=== PATIENT | female | born 1965 | race Caucasian/White ===

== ENCOUNTER → 2019-04-19 | Outpatient (CLI) | payer MEDICARE, OTHER ==
[2019-04-19 13:30] LABS: HCT 45.3 % (34.0-46.0); HGB 15.7 gm/dL (11.4-16.0); MCH 32.2 pg (25.0-35.0); MCHC 34.5 g/dL (31.0-37.0); MCV 93.2 fL (80.0-100.0); Mean Platelet Volume 5.4; Platelet Count 313 k/uL (150-450); RBC 4.86 m/uL (3.80-5.40); RDW 13.6 % (11.5-15.5); WBC 9.3 k/uL (3.8-10.6)
[2019-04-19 13:37] LABS: African American GFR (CKD) >90 (>60 ml/min/1.73 sqM); Anion Gap 9 mmol/L; Blood Urea Nitrogen 23 mg/dL (7-17); Carbon Dioxide 29 mmol/L (22-30); Chloride 99 mmol/L (98-107); Non-African American GFR(CKD) 84 (>60 ml/min/1.73 sqM); Potassium 4.5 mmol/L (3.5-5.1); Sodium 137 mmol/L (137-145)
== END | disposition home or self-care (01) ==
LOC: LABPAT 12:27
PROVIDERS: ATTEND Internal Medicine Interventional Cardiology
DX: Z01.812 Encounter for preprocedural laboratory examination (principal); I65.23 Occlusion and stenosis of bilateral carotid arteries
CPT/HCPCS: 36415; 80051; 82565; 84520; 85027

== ENCOUNTER 2019-04-21 10:20 | Day surgery (SDC) | payer MEDICARE, OTHER ==
[2019-04-19 10:28] VITALS: BMI 37.4
[~2019-04-21 10:20] MED LIST: ALPRAZolam 0.25 MG TAB PO PRN; ALPRAZolam 0.5 MG TAB PO PRN; ASPIRIN 325 MG TAB PO STA; ATORVASTATIN 80 MG TAB PO STA; NITROGLYCERIN SL TABS 0.4 MG TAB SUBLINGUAL PRN; SODIUM CHLORIDE 0.9% 1,000 ML in EMPTY BAG 1 BAG IV ONE
[2019-04-21] MEDS ORDERED: ASPIRIN 81 MG ONE (10:32)
[2019-04-21] MEDS ORDERED: SODIUM CHLORIDE 0.9% 1,000 ML IV ONE (10:54)
[2019-04-21] MEDS ORDERED: INSULIN ASPART (NovoLOG) 100 UNIT/ML VIAL SQ ONE (10:56)
[2019-04-21 10:59] LABS: Glucose,Whole Blood 241 mg/dL (75-99)
[2019-04-21] MEDS ORDERED: fentaNYL (PF) 50 MCG/ML 2 ML AMP IVP ONE (15:30)
[2019-04-21] MEDS ORDERED: MIDAZOLAM 2 MG/2 ML VIAL IVP ONE (15:30)
[2019-04-21] MEDS ORDERED: LIDOCAINE 1% INJ 10MG/ML (20 ML MDV) SQ ONE (15:33)
[2019-04-21] MEDS ORDERED: SODIUM CHLORIDE 0.9% 1,000 ML IV SCH (16:15)
[2019-04-21] MEDS ORDERED: ATROPINE SULFATE 0.1 MG/ML 10ML SYRINGE ONE (16:15)
--- NOTE | 2019-04-21 16:20 | P.PCN ---
Date of Procedure: 04/21/19 Operative Findings: PERIPHERAL ANGIOGRAM Performing physician Jaxson Townsend M.D. Procedure performed 1. Selective left subclavian angiogram 2. Gradient measurement across the left subclavian artery Indication This is a pleasant 53-year-old female patient with history of coronary artery disease and prior coronary artery bypass grafting, dyslipidemia, hypertension, and history of smoking, was experiencing left arm discomfort and diminished left radial pulse. She underwent an arterial duplex study which revealed severe disease involving the left subclavian artery. Because of that she was brought today to undergo left subclavian angiogram with possible left subclavian stenting. Approach Right common femoral artery Complications None Level of sedation Moderate sedation length of 25 minutes Procedure description After obtaining an informed consent the patient was brought to the cardiac sleep lab technician. The right common femoral artery was cannulated using micropuncture technique, the micropuncture wire passed easily then I placed a 6-Emir[place] sheath at the right common femoral artery. Subsequently I did engage the left subclavian artery using a Kolby right catheter. After that I did selective left subclavian angiogram. Then I did gradient measurement across the left subclavian. The procedure was completed without any complications Left subclavian angiogram It was performed in the HARMON as well as HARMON projection and using digital subselection. In the [place] projection, there was mild disease involving the left subclavian right after the takeoff of the left vertebral artery. On the [place] projection, the there was intermediate disease involving the left subclavian. Because of that I did a gradient measurement across the left subclavian and that came in to be at only 10 mmHg which is below the significant. Because of that I decided to stop. Postprocedure management 1. Aggressive cholesterol control 2. Risk factors modification 3. Smoking cessation 4. Follow-up with the patient
--- NOTE | 2019-04-21 17:08 | IR ---
EXAMINATION TYPE: IR angio subclavian DATE OF EXAM: 04/21/2019 CLINICAL HISTORY: Left arm pain and numbness. TECHNIQUE: Fluoroscopy. COMPARISON: None. FINDINGS: Fluoroscopic guidance was provided during left upper extremity angiogram procedure perform ed by Dr. Townsend. A total of 4.5 minutes of fluoroscopic time was utilized during the procedure and se veral cine runs are acquired. Please refer to procedure note for further details as I was not present nor performed procedure. IMPRESSION: As Above.
[2019-04-21 20:07] VITALS: RESP 18
[2019-04-21] MEDS ORDERED: HYDROcodone/APAP 7.5-325MG 1 EACH TAB PO PRN (22:08)
[2019-04-21 22:16] LABS: Glucose,Whole Blood 286 mg/dL (75-99)
[2019-04-21] MEDS: INSULIN DETEMIR (LEVEMIR) 100 UNIT/ML SYR SQ SCH (22:56)
[2019-04-21] MEDS: INSULIN ASPART (NovoLOG) 100 UNIT/ML VIAL SQ SCH (23:17)
[2019-04-22 06:23] LABS: African American GFR (CKD) >90 (>60 ml/min/1.73 sqM); Non-African American GFR(CKD) >90 (>60 ml/min/1.73 sqM)
[2019-04-22] MEDS ORDERED: LEVOTHYROXINE 50 MCG TAB PO SCH (06:30)
[2019-04-22 06:49] LABS: Glucose,Whole Blood 190 mg/dL (75-99)
[2019-04-22] MEDS ORDERED: CARVEDILOL 3.125 MG TAB PO SCH (07:30)
[2019-04-22] MEDS ORDERED: PANTOPRAZOLE 40 MG TABLET PO SCH (07:30)
[2019-04-22 07:33] VITALS: BP 125/56; PULSE 70; TEMP 97.7
[2019-04-22] MEDS: INSULIN DETEMIR (LEVEMIR) 100 UNIT/ML SYR SQ SCH (08:16)
[2019-04-22] MEDS: INSULIN ASPART (NovoLOG) 100 UNIT/ML VIAL SQ SCH (08:16)
[2019-04-22] MEDS ORDERED: LISINOPRIL 10 MG TAB PO SCH (09:00)
[2019-04-22] MEDS ORDERED: ASPIRIN 81 MG PO SCH (09:00)
[2019-04-22] MEDS ORDERED: FUROSEMIDE 40 MG TAB PO SCH (09:00)
[2019-04-22] MEDS ORDERED: CLOPIDOGREL 75 MG TAB PO SCH (09:00)
[2019-04-22] MEDS ORDERED: SPIRONOLACTONE 25 MG TAB PO SCH (09:00)
[2019-04-22] MEDS ORDERED: CHOLECALCIFEROL 1,000 UNIT TAB PO SCH (09:00)
[2019-04-22] MEDS ORDERED: busPIRone HCl 5 MG TAB PO SCH (09:00)
[2019-04-22] MEDS ORDERED: FERROUS SULFATE 325 MG TAB PO SCH (09:00)
[2019-04-22] MEDS ORDERED: ATORVASTATIN 80 MG TAB PO SCH (09:00)
[2019-04-22] MEDS ORDERED: ISOSORBIDE MONONITRATE ER 30 MG TAB.ER.24H PO SCH (09:00)
[2019-04-22] MEDS ORDERED: Canagliflozin [Invokana] 100 MG PO SCH (09:00)
[2019-04-22] MEDS ORDERED: EVOLOCUMAB 140 MG SQ SCH (09:00)
[2019-04-22] MEDS ORDERED: FENOFIBRATE 160 MG TAB PO SCH (09:00)
[2019-04-22] MEDS ORDERED: DESVENLAFAXINE 100 MG PO SCH (09:00)
[2019-04-22] MEDS ORDERED: FAMOTIDINE 20 MG TAB PO SCH (21:00)
[2019-04-22] MEDS ORDERED: diphenhydrAMINE 50 MG CAP PO SCH (21:00)
--- NOTE | 2019-04-23 14:50 | DS ---
DISCHARGE SUMMARY ADMISSION DATE: 04/21/2019 DISCHARGE DATE: 04/22/2019 BRIEF HISTORY: This is a 53-year-old female patient with history of coronary artery disease and prior coronary artery bypass grafting, diabetes, hypertension, dyslipidemia, and peripheral arterial disease, was experiencing left arm discomfort with exertion. She is known to have left subclavian stenosis. She does have diminished left radial pulse. She underwent left subclavian angiogram which revealed only intermediate disease. I did perform gradient measurement across the left subclavian and that came into be not significant at 10 mmHg. Because of that, stenting of the left subclavian was aborted. The patient kept overnight because the procedure was performed late during the day. The patient is going to be discharged home on dual anti-platelet therapy and I will follow up with the patient in the office as an outpatient. ANNIKA / SYED: [id number] /
== END 2019-04-22 10:30 | disposition home or self-care (01) ==
LOC: CATHCVL 10:20 → 1SOBS 16:47 → CATHCVL 04-22 10:30
PROVIDERS: ATTEND Internal Medicine Interventional Cardiology
DX: I70.8 Atherosclerosis of other arteries (principal); I25.10 Atherosclerotic heart disease of native coronary artery without angina pectoris; I65.23 Occlusion and stenosis of bilateral carotid arteries; E78.5 Hyperlipidemia, unspecified; F17.210 Nicotine dependence, cigarettes, uncomplicated; E11.51 Type 2 diabetes mellitus with diabetic peripheral angiopathy without gangrene; Z95.1 Presence of aortocoronary bypass graft; Z82.49 Family history of ischemic heart disease and other diseases of the circulatory system; Z95.5 Presence of coronary angioplasty implant and graft; Z79.02 Long term (current) use of antithrombotics/antiplatelets; Z79.82 Long term (current) use of aspirin; Z79.890 Hormone replacement therapy; Z79.4 Long term (current) use of insulin; Z79.899 Other long term (current) drug therapy
CPT/HCPCS: 36215; 75710; 82565; C1894; C1769 ×4; J2250; J2001; J3010

== ENCOUNTER 2021-08-30 08:42 | Day surgery (SDC) | payer MEDICARE, OTHER ==
[2021-08-28 15:47] VITALS: BMI 40.1
[~2021-08-30 08:42] MED LIST changes: +ASPIRIN 325 MG TAB PO ONE; -ASPIRIN 325 MG TAB PO STA; +ATORVASTATIN 80 MG TAB PO ONE; -ATORVASTATIN 80 MG TAB PO STA; -NITROGLYCERIN SL TABS 0.4 MG TAB SUBLINGUAL PRN; -SODIUM CHLORIDE 0.9% 1,000 ML in EMPTY BAG 1 BAG IV ONE
[2021-08-30] MEDS: SODIUM CHLORIDE 0.9% 1,000 ML in EMPTY BAG 1 BAG IV SCH ×3 (09:05→22:32)
[2021-08-30 09:11] LABS: Glucose,Whole Blood 231 mg/dL (75-99)
[2021-08-30] MEDS ORDERED: INSULIN ASPART (NovoLOG) 100 UNIT/ML VIAL SQ ONE (09:19)
[2021-08-30] MEDS ORDERED: MIDAZOLAM 2 MG/2 ML VIAL IV ONE ×2 (09:40→10:52)
[2021-08-30] MEDS ORDERED: LIDOCAINE 1% INJ 10MG/ML (20 ML MDV) SQ ONE ×2 (09:42)
[2021-08-30] MEDS: HEPARIN SODIUM 1,000 UN/ML (10ML VL) IV ONE ×2 (10:06→10:40)
[2021-08-30] MEDS ORDERED: IOPAMIDOL-370 125ML BTL INJ ONE (10:13)
[2021-08-30] MEDS ORDERED: IOPAMIDOL-370 100ML BTL INJ ONE ×2 (10:53)
[2021-08-30] MEDS ORDERED: HYDROcodone/APAP 7.5-325MG 1 EACH TAB PO PRN (11:06)
[2021-08-30] MEDS ORDERED: MAG HYDROX/AL HYDROX/SIMETH 30 ML CUP PO PRN (11:08)
[2021-08-30] MEDS ORDERED: NITROGLYCERIN SL TABS 0.4 MG TAB SUBLINGUAL PRN (11:08)
[2021-08-30] MEDS ORDERED: RX INFO: IV CONTRAST WAS GIVEN 1 EACH MISC MISCELLANE PRN (11:08)
[2021-08-30] MEDS ORDERED: ZOLPIDEM 5 MG TAB PO PRN (11:08)
[2021-08-30] MEDS ORDERED: ATROPINE SULFATE 0.1 MG/ML 10ML SYRINGE IV PRN (11:08)
[2021-08-30] MEDS ORDERED: CLOPIDOGREL 75 MG TAB PO ONE (11:09)
[2021-08-30] MEDS ORDERED: EVOLOCUMAB 140 MG/ML SQ SCH (11:15)
[2021-08-30] MEDS ORDERED: SODIUM CHLORIDE 0.9% 1,000 ML in EMPTY BAG 1 BAG IV SCH (11:15)
--- NOTE | 2021-08-30 11:26 | P.PCN ---
Date of Procedure: 08/30/21 Operative Findings: CARDIAC CATHETERIZATION AND PERCUTANEOUS CORONARY INTERVENTION PERFORMING PHYSICIAN: Jaxson Townsend MD, [facility] PROCEDURE PERFORMED: 1. Selective right and left coronary angiogram 2. Left heart catheterization 3. Selective angiogram of the jump SVG to LAD and OM 4. Selective angiogram of the SVG to PDA of LCx 5. Successful stenting of the SVG to PDA of LCx using 3.5 x 38 and 3.5 x 32 mm Xience CHAVO with an excellent angiographic results 6. Selective right common femoral artery angiogram 7. Ultrasound-guided access of the right common femoral artery INDICATION: This is a very pleasant 56-year-old female patient with diabetes and smoking and hypertension and dyslipidemia and peripheral arterial disease was seen in the office recently where she was experiencing symptoms of shortness of breath with exertion which has progressed on her recently. She underwent myocardial perfusion imaging stress test and that showed basal lateral ischemia. In the light of that a heart catheterization was advised COMPLICATION: None APPROACH: Right common femoral artery LEVEL OF SEDATION: Moderate with a sedation length of 73 minutes PROCEDURE DESCRIPTION: After obtaining an informed consent, the patient was brought to cardiac lab technician. Local anesthesia was performed using lidocaine subcutaneously. The right common femoral artery was cannulated using Seldinger technique, the guidewire passed easily, following that we advanced a 6 [place] sheath dilator assembly, the wire and dilator were removed and sheath was flushed. Selective right and left coronary angiogram using a 6-[place] JR4 and JL catheters. Subsequently I did an angiogram of the SVG to LAD and LCx using LCB catheter Following that we did left heart catheterization using 6-[place] pigtail catheter. After that I did intervene on the SVG going to PDA/60 The procedure was completed there was no complication. SELECTIVE CORONARY ANGIOGRAM: The right coronary artery: Is a large caliber vessel and a dominant vessel. The RCA approximately appears to be angiographically normal. The mid RCA is a stented with mild in-stent restenosis. The RCA distally appeared to be angiographically normal and bifurcates into PDA and PLV branches and both appeared to be angiographically normal. Left main: Has mild disease only. It bifurcates into an LCx and LAD The left circumflex: The LCx is a large caliber vessel and codominant vessel. The proximal LCx appeared to be angiographically normal. Gives rises into the first and second obtuse marginal branches and both appeared to be angiographically normal. The LCx in the distally is occluded by the bifurcation of small third obtuse marginal branch. The left anterior descending artery: The LAD is a large caliber vessel. The proximal LAD has mild disease only. The mid LAD has a lesion appeared to be tubular in the range of 40-50%. The LAD distally is angiographically normal. There is competitive flow was seen in the LAD coming from the graft. CORONARY BYPASSES ANGIOGRAM: The jump SVG going to LAD and OM appears to be patent The SVG going to the PDA of LCx is subtotally occluded PCI OF SVG TO THE PDA OF LCX: Anticoagulation was initiated and continued using heparin with continuous ACT monitoring. I engaged the graft using an a.l. 0.75 guiding catheter. Attempting wiring the graft using a whisper wire was unsuccessful but was successful with a backup support off super cross catheter at 120 angle. Subsequently the catheter was advanced all the way to the distal graft and I did inject through the catheter to prove that I was in the true lumen. After that balloon angioplasty was performed using 2.5 x 20 mm balloon. Subsequently I deployed in the mid graft 3.5 x 38 mm stent and in the proximal graft I did deploy 3.5 x 32 mm stent. Balloon angioplasty of the PDA itself was performed using 2.5 mm balloon The final angiogram showed an excellent angiographic results and the procedure was completed without any complication HEMODYNAMICS: The LVEDP was 4 mmHg without significant gradient across aortic valve CONCLUSION: 1. Patent jump SVG going to the LAD and OM 2. Occluded SVG to the PDA off LCx 3. Mild in-stent restenosis involving the mid right coronary artery 4. I performed successful stenting of the SVG to PDA of LCx with good angiographic results POSTPROCEDURE MANAGEMENT: Dual antiplatelet therapy Aggressive cholesterol control Risk factors modifications Follow-up with the
[2021-08-30] MEDS ORDERED: INSULIN REGULAR U SQ SCH (12:30)
[2021-08-30] MEDS ORDERED: NICOTINE 14MG/24HR PATCH TRANSDERM SCH (13:30)
[2021-08-30] MEDS ORDERED: INSULIN REGULAR 100 UNIT/ML VIAL (IM/SQ) SQ SCH ×3 (13:51→21:00)
[2021-08-30] MEDS: GABAPENTIN 300 MG CAP PO SCH ×2 (15:38→21:46)
[2021-08-30 16:54] LABS: Glucose,Whole Blood 240 mg/dL (75-99)
[2021-08-30] MEDS ORDERED: INSULIN REGULAR 100 UNIT/ML VIAL (IV) SQ SCH ×2 (17:30→21:00)
[2021-08-30] MEDS: PANTOPRAZOLE 40 MG TABLET PO SCH (17:40)
[2021-08-30 19:46] LABS: Glucose,Whole Blood 225 mg/dL (75-99)
[2021-08-30] MEDS: busPIRone HCl 10 MG TAB PO SCH (20:30)
[2021-08-30] MEDS: FUROSEMIDE 40 MG TAB PO SCH (20:32)
[2021-08-30] MEDS ORDERED: diphenhydrAMINE 25 MG CAP PO SCH (21:00)
[2021-08-30] MEDS ORDERED: ARIPiprazole 10 MG TAB PO SCH (21:00)
[2021-08-30] MEDS ORDERED: Icosapent Ethyl [Vascepa] 0.5 GM Capsule PO SCH (21:00)
[2021-08-31] MEDS ORDERED: LEVOTHYROXINE 137 MCG TAB PO SCH (06:30)
[2021-08-31] MEDS ORDERED: carvediloL 6.25 MG TAB PO SCH (07:30)
[2021-08-31] MEDS ORDERED: INSULIN REGULAR 100 UNIT/ML VIAL (IV) SQ SCH ×2 (07:30→12:30)
[2021-08-31 07:38] VITALS: BP 152/73; PULSE 78; RESP 18; TEMP 97.5
[2021-08-31 08:10] LABS: African American GFR (CKD) >90 (>60 ml/min/1.73 sqM); Non-African American GFR(CKD) >90 (>60 ml/min/1.73 sqM)
--- NOTE | 2021-08-31 08:27 | P.DS ---
Providers Attending physician: Jaxson Townsend Consults: 08/30/21 11:08 Consult Physician Routine Consulting Provider: [facility] Consult Reason/Comments: Post Interventional patient Do you want consulting provider notified?: Already Contacted [facility] Course: The patient is a pleasant 56-year-old female patient was underwent heart catheterization and stenting of the SVG to LCx yesterday The patient was seen this morning. She is hemodynamically stable and asymptomatic. She's going to be discharged home on dual antiplatelet therapy and I'll follow- up with the patient next week in the office Plan - Discharge Summary Discharge Rx Participant: No New Discharge Prescriptions: Continue Spironolactone [Aldactone] 25 mg PO DAILY ARIPiprazole [Abilify] 30 mg PO HS carvediloL [Carvedilol] 6.25 mg PO DAILY Clopidogrel Bisulfate [Clopidogrel] 75 mg PO QAM Hydrocodone/Acetaminophen [Hydrocodon-Acetaminoph 7.5-325] 1 tab PO Q6H PRN PRN Reason: Pain lisinopriL [Lisinopril] 10 mg PO DAILY Aspirin 162 mg PO DAILY diphenhydrAMINE [Benadryl] 50 mg PO HS Levothyroxine Sodium [Synthroid] 137 mcg PO DAILY Ferrous Sulfate [Iron (65 MG Elemental)] 65 mg PO DAILY #0 Rosuvastatin Calcium [Crestor] 40 mg PO DAILY Cholecalciferol (Vitamin D3) [Vitamin D3] 5,000 units PO DAILY busPIRone HCL 30 mg PO BID Isosorbide Mononitrate ER [Imdur] 30 mg PO DAILY Furosemide [Lasix] 40 mg PO BID Canagliflozin [Invokana] 100 mg PO DAILY Evolocumab [Repatha Sureclick] 140 mg SQ Q14D Fenofibrate [Lofibra] 160 mg PO DAILY Pantoprazole [Protonix] 40 mg PO BID Gabapentin [Neurontin] 300 mg PO TID Insulin Regular, Human [humulin R U-500 Kwikpen] 150 unit SQ W/BRKFST Insulin Regular, Human [humulin R U-500 Kwikpen] 80 unit SQ W/LUNCH Insulin Regular, Human [humulin R U-500 Kwikpen] 105 unit SQ W/SUPPER Insulin Regular, Human [humulin R U-500 Kwikpen] 40 unit SQ HS Icosapent Ethyl [Vascepa] 1,000 gm PO BID Discharge Medication List ARIPiprazole [Abilify] 30 mg PO HS 04/25/14 [History] Aspirin 162 mg PO DAILY 04/25/14 [History] Clopidogrel Bisulfate [Clopidogrel] 75 mg PO QAM 04/25/14 [History] Ferrous Sulfate [Iron (65 MG Elemental)] 65 mg PO DAILY #0 04/25/14 [History] Hydrocodone/Acetaminophen [Hydrocodon-Acetaminoph 7.5-325] 1 tab PO Q6H PRN 04/25/14 [History] Levothyroxine Sodium [Synthroid] 137 mcg PO DAILY 04/25/14 [History] Spironolactone [Aldactone] 25 mg PO DAILY 04/25/14 [History] carvediloL [Carvedilol] 6.25 mg PO DAILY 04/25/14 [History] diphenhydrAMINE [Benadryl] 50 mg PO HS 04/25/14 [History] lisinopriL [Lisinopril] 10 mg PO DAILY 04/25/14 [History] Rosuvastatin Calcium [Crestor] 40 mg PO DAILY 01/11/15 [History] Cholecalciferol (Vitamin D3) [Vitamin D3] 5,000 units PO DAILY 08/21/15 [History] Canagliflozin [Invokana] 100 mg PO DAILY 04/19/19 [History] Evolocumab [Repatha Sureclick] 140 mg SQ Q14D 04/19/19 [History] Furosemide [Lasix] 40 mg PO BID 04/19/19 [History] Isosorbide Mononitrate ER [Imdur] 30 mg PO DAILY 04/19/19 [History] busPIRone HCL 30 mg PO BID 04/19/19 [History] Fenofibrate [Lofibra] 160 mg PO DAILY 08/14/21 [History] Gabapentin [Neurontin] 300 mg PO TID 08/14/21 [History] Icosapent Ethyl [Vascepa] 1,000 gm PO BID 08/14/21 [History] Insulin Regular, Human [humulin R U-500 Kwikpen] 40 unit SQ HS 08/14/21 [History] Insulin Regular, Human [humulin R U-500 Kwikpen] 80 unit SQ W/LUNCH 08/14/21 [History] Insulin Regular, Human [humulin R U-500 Kwikpen] 105 unit SQ W/SUPPER 08/14/21 [History] Insulin Regular, Human [humulin R U-500 Kwikpen] 150 unit SQ W/BRKFST 08/14/21 [History] Pantoprazole [Protonix] 40 mg PO BID 08/14/21 [History] Follow up Appointment(s)/Referral(s): Jaxson Townsend MD [STAFF PHYSICIAN] - 09/06/21 1:15 pm ([facility] office.)
[2021-08-31] MEDS ORDERED: ATORVASTATIN 80 MG TAB PO SCH (09:00)
[2021-08-31] MEDS ORDERED: FERROUS SULFATE 325 MG TAB PO SCH (09:00)
[2021-08-31] MEDS ORDERED: lisinopriL 10 MG TAB PO SCH (09:00)
[2021-08-31] MEDS ORDERED: FENOFIBRATE 160 MG TAB PO SCH (09:00)
[2021-08-31] MEDS ORDERED: CLOPIDOGREL 75 MG TAB PO SCH (09:00)
[2021-08-31] MEDS ORDERED: ASPIRIN 81 MG PO SCH (09:00)
[2021-08-31] MEDS ORDERED: SPIRONOLACTONE 25 MG TAB PO SCH (09:00)
[2021-08-31] MEDS ORDERED: CHOLECALCIFEROL 25 MCG (1000 IU) TABLET PO SCH (09:00)
[2021-08-31] MEDS ORDERED: ISOSORBIDE MONONITRATE ER 30 MG TAB.ER.24H PO SCH (09:00)
[2021-08-31] MEDS: FUROSEMIDE 40 MG TAB PO SCH (09:06)
[2021-08-31] MEDS: GABAPENTIN 300 MG CAP PO SCH (09:06)
[2021-08-31] MEDS: PANTOPRAZOLE 40 MG TABLET PO SCH (09:06)
[2021-08-31] MEDS: busPIRone HCl 10 MG TAB PO SCH (09:07)
== END 2021-08-31 10:05 | disposition home or self-care (01) ==
LOC: CATHCVL 08:42 → 6NMEDSUR 13:32 → CATHCVL 08-31 10:05
PROVIDERS: ATTEND Internal Medicine Interventional Cardiology
DX: I25.810 Atherosclerosis of coronary artery bypass graft(s) without angina pectoris (principal); I25.10 Atherosclerotic heart disease of native coronary artery without angina pectoris; T82.855A Stenosis of coronary artery stent, initial encounter; I10 Essential (primary) hypertension; E11.51 Type 2 diabetes mellitus with diabetic peripheral angiopathy without gangrene; E78.5 Hyperlipidemia, unspecified; F17.210 Nicotine dependence, cigarettes, uncomplicated; I70.8 Atherosclerosis of other arteries; I77.89 Other specified disorders of arteries and arterioles; Z95.1 Presence of aortocoronary bypass graft; Z20.822 Contact with and (suspected) exposure to COVID-19; Z79.899 Other long term (current) drug therapy; Z79.890 Hormone replacement therapy; Z79.02 Long term (current) use of antithrombotics/antiplatelets; Z79.4 Long term (current) use of insulin; Z82.49 Family history of ischemic heart disease and other diseases of the circulatory system
CPT/HCPCS: 93459; 82565; 87635; C9604; C1769 ×5; C1887 ×2; C1725 ×3; C1894; C1874 ×2; J2250; J2001; J1644; Q9967 ×2

== ENCOUNTER → 2021-11-07 | Outpatient (CLI) | payer MEDICARE, OTHER ==
[2021-11-07 07:43] LABS: African American GFR (CKD) >90 (>60 ml/min/1.73 sqM); Blood Urea Nitrogen 18 mg/dL (7-17); Non-African American GFR(CKD) >90 (>60 ml/min/1.73 sqM)
--- NOTE | 2021-11-07 09:19 | CT ---
EXAMINATION TYPE: CT soft tissue neck w con DATE OF EXAM: 11/07/2021 8:00 AM COMPARISON: No previous CT scan is available for comparison HISTORY: Rt neck swelling, mass, lump CT DLP: 592.1 mGycm Automated exposure control for dose reduction was used. CONTRAST: CT scan of the neck is performed following with IV Contrast, patient injected with 100 mL of Isovue 3 00. Axial images are obtained, coronal and sagittal reformatted images are reviewed. FINDINGS: Grossly unremarkable nasopharynx, oropharynx, hypopharynx, larynx, visualized portion of the trachea and esophagus. Small heterogeneous thyroid gland, please correlate with thyroid function tests. Symme trical unremarkable parotid and submandibular salivary glands. Scattered subcentimeter bilateral cervical and submandibular lymph nodes. No pathologically enlarged lymph nodes in the neck. Scattered arterial atherosclerotic calcifications. Patent major neck vessels . Questionable small lipoma versus prominent fat seen in the right side of the lower neck measuring 2 3 mm (image #40, series 3) Mucosal thickening of the right maxillary sinus. Sternotomy wire sutures. Minimal infiltration in the posterior aspect of the right lung apex, not appreciated in 2015 CT chest. Recommend clinical correl ation and precautionary follow-up chest CT scan in 2-3 months for reassessment. IMPRESSION: Questionable small lipoma versus prominent fat seen in the right side of the lower neck as described above, please correlate clinically. Otherwise no definite lesion or pathologically enlarged lymph nodes seen in the neck. Incidental find ings and recommendations as detailed above.
== END | disposition home or self-care (01) ==
LOC: RADCTMAIN 06:54
PROVIDERS: ATTEND Otolaryngology
DX: R22.1 Localized swelling, mass and lump, neck (principal)
CPT/HCPCS: 82565; 84520; 70491; 36415; Q9967

== ENCOUNTER 2021-12-15 14:25 | Emergency (ER) | payer MEDICARE, OTHER ==
[2021-12-15 14:32] VITALS: TEMP 98.1
[2021-12-15 15:28] LABS: Basophils # (A) 0.1 k/uL (0-0.2); Basophils % (A) 1 %; Eosinophils # (A) 0.3 k/uL (0-0.7); Eosinophils % (A) 4 %; HCT 41.9 % (34.0-46.0); HGB 13.7 gm/dL (11.4-16.0); Lymphocytes # (A) 1.6 k/uL (1.0-4.8); Lymphocytes % (A) 22 %; MCH 30.8 pg (25.0-35.0); MCHC 32.7 g/dL (31.0-37.0); MCV 94.3 fL (80.0-100.0); Monocytes # (A) 0.4 k/uL (0-1.0); Monocytes % (A) 6 %; Neutrophils # (A) 4.7 k/uL (1.3-7.7); Neutrophils % (A) 67 %; Platelet Count 291 k/uL (150-450); RBC 4.44 m/uL (3.80-5.40); RDW 14.7 % (11.5-15.5); WBC 7.1 k/uL (3.8-10.6)
[2021-12-15 15:37] LABS: ALT 27 U/L (4-34); AST 32 U/L (14-36); African American GFR (CKD) >90 (>60 ml/min/1.73 sqM); Albumin 4.2 g/dL (3.5-5.0); Alkaline Phosphatase 45 U/L (38-126); Anion Gap 9 mmol/L; Blood Urea Nitrogen 20 mg/dL (7-17); Calcium 9.7 mg/dL (8.4-10.2); Carbon Dioxide 28 mmol/L (22-30); Chloride 102 mmol/L (98-107); Glucose 206 mg/dL (74-99); Non-African American GFR(CKD) 78 (>60 ml/min/1.73 sqM); Potassium 4.2 mmol/L (3.5-5.1); Sodium 139 mmol/L (137-145); Total Bilirubin 0.5 mg/dL (0.2-1.3)
--- NOTE | 2021-12-15 15:51 | XR ---
EXAMINATION TYPE: XR chest 2V DATE OF EXAM: 12/15/2021 COMPARISON: 01/11/2015 HISTORY: Short of breath TECHNIQUE: FINDINGS: There is no heart failure nor confluent pneumonic infiltrate. There are sternal wires. Costophrenic a ngles are clear. IMPRESSION: No active cardiopulmonary disease. No change.
[2021-12-15 15:54] LABS: Prothrombin Time 10.5 sec (9.0-12.0)
[2021-12-15 15:59] LABS: Partial Thromboplastin Time 21.6 sec (22.0-30.0)
[2021-12-15] MEDS ORDERED: ALBUTEROL NEBULIZED 2.5 MG/3 ML INHALATION STA (16:15)
--- NOTE | 2021-12-15 16:17 | ED ---
SOB HPI - General Chief Complaint: Shortness of Breath Stated Complaint: SOB/Sent by Urgent Care Time Seen by Provider: 12/15/21 14:42 Source: patient, RN notes reviewed Mode of arrival: ambulatory Limitations: no limitations - History of Present Illness Initial Comments: Patient is a 56-year-old female presents the emergency room with complaints of progressively shortness of breath with exertion. She reports that over the last month she has had shortness of breath with exertion but reports that these symptoms have slowly progressed and now she is having difficulty even getting dressed without having shortness of breath. She was recently following with ENT in regards to swelling in her throat which workup found her to have lipoma with no concerning with no adenopathy. Incidental finding on computed tomography scan did show a posterior right apex infiltrate. Due to this finding along with her smoking status she was referred to pulmonary by ENT. She has an appointment scheduled with a pulmonary on Friday. He reports despite her shor tness of breath she continues to smoke approximately a pack per day. She does not have a nebulizer at home and is not on home oxygen or home inhalers. She denies any associated symptoms with the exception of a cough. She denies any chest pain, orthopnea, peripheral edema, abdominal pain, nausea, vomiting, fevers or chills. She denies any known exposure to cover for influenza. She has a significant past medical history including GA 2 with previous CABG, diabetes on insulin and oral medications, anxiety and depression, CHF, eczema, anemia, CAD, hypothyroidism, hypertension and hyperlipidemia. - Related Data Home Medications Medication Instructions Recorded Confirmed ARIPiprazole [Abilify] 30 mg PO HS 04/25/14 08/30/21 Aspirin 162 mg PO DAILY 04/25/14 08/30/21 Clopidogrel Bisulfate [Clopidogrel] 75 mg PO QAM 04/25/14 08/30/21 Ferrous Sulfate [Iron (65 MG 65 mg PO DAILY #0 04/25/14 08/30/21 Elemental)] Hydrocodone/Acetaminophen 1 tab PO Q6H PRN 04/25/14 08/30/21 [Hydrocodon-Acetaminoph 7.5-325] Levothyroxine Sodium [Synthroid] 137 mcg PO DAILY 04/25/14 08/30/21 Spironolactone [Aldactone] 25 mg PO DAILY 04/25/14 08/30/21 carvediloL [Carvedilol] 6.25 mg PO DAILY 04/25/14 08/30/21 diphenhydrAMINE [Benadryl] 50 mg PO HS 04/25/14 08/30/21 lisinopriL [Lisinopril] 10 mg PO DAILY 04/25/14 08/30/21 Rosuvastatin Calcium [Crestor] 40 mg PO DAILY 01/11/15 08/30/21 Cholecalciferol (Vitamin D3) 5,000 units PO DAILY 08/21/15 08/30/21 [Vitamin D3] Canagliflozin [Invokana] 100 mg PO DAILY 04/19/19 08/30/21 Evolocumab [Repatha Sureclick] 140 mg SQ Q14D 04/19/19 08/28/21 Furosemide [Lasix] 40 mg PO BID 04/19/19 08/30/21 Isosorbide Mononitrate ER [Imdur] 30 mg PO DAILY 04/19/19 08/30/21 busPIRone HCL 30 mg PO BID 04/19/19 08/30/21 Fenofibrate [Lofibra] 160 mg PO DAILY 08/14/21 08/30/21 Gabapentin [Neurontin] 300 mg PO TID 08/14/21 08/30/21 Insulin Regular, Human [humulin R 40 unit SQ HS 08/14/21 08/30/21 U-500 Kwikpen] Insulin Regular, Human [humulin R 80 unit SQ W/LUNCH 08/14/21 08/30/21 U-500 Kwikpen] Insulin Regular, Human [humulin R 105 unit SQ W/SUPPER 08/14/21 08/30/21 U-500 Kwikpen] Insulin Regular, Human [humulin R 150 unit SQ W/BRKFST 08/14/21 08/30/21 U-500 Kwikpen] Pantoprazole [Protonix] 40 mg PO BID 08/14/21 08/30/21 icosapent ethyL [Vascepa] 1,000 gm PO BID 08/14/21 08/30/21 Previous Rx's Medication Instructions Recorded Albuterol Inhaler [Ventolin Hfa 1 - 2 puff INHALATION RT-Q6H PRN 12/15/21 Inhaler] 30 Days #1 inh methylPREDNISolone Dose Pack 4 mg PO DIRECTED #21 tab 12/15/21 [Medrol Dose Pack] Allergies Allergy/AdvReac Type Severity Reaction Status Date / Time No Known Allergies Allergy Verified 12/15/21 14:31 Review of Systems ROS Statement: Those systems with pertinent positive or pertinent negative responses have been documented in the HPI. ROS Other: All systems not noted in ROS Statement are negative. Past Medical History Past Medical History: Blood Disorder, Coronary Artery Disease (CAD), Chest Pain / Angina, Heart Failure, Diabetes Mellitus, GERD/Reflux, Hyperlipidemia, Hypertension, Myocardial Infarction (non Q-wave), Pneumonia, Skin Disorder (Eczema), Thyroid Disorder Additional Past Medical History / Comment(s): Overactive bladder and anemia Last Myocardial Infarction Date:: 2002 History of Any Multi-Drug Resistant Organisms: None Reported Past Surgical History: Section, Coronary Bypass/CABG, Heart Catheterization With Stent Additional Past Surgical History / Comment(s): QUAD BYPASS 2012. REMOVAL OVARIAN CYST, COLONOSCOPY Past Anesthesia/Blood Transfusion Reactions: No Reported Reaction Date of Last Stent Placement:: 08/30/21 Past Psychological History: Anxiety, Bipolar, Depression, PTSD Smoking Status: Current every day smoker Past Alcohol Use History: Occasional Past Drug Use History: Marijuana - Past Family History Sister(s) Family Medical History: Cancer Additional Family Medical History / Comment(s): Uterine & Kidney. General Exam Limitations: no limitations General appearance: alert, in no apparent distress Head exam: Present: atraumatic, normocephalic, normal inspection Eye exam: Present: normal appearance, PERRL, EOMI. Absent: scleral icterus, conjunctival injection, periorbital swelling ENT exam: Present: normal exam, mucous membranes moist Neck exam: Present: normal inspection, tenderness, full ROM, lymphadenopathy Respiratory exam: Present: wheezes (fin right anterior expiratory), decreased breath sounds. Absent: respiratory distress, rales, rhonchi, stridor, accessory muscle use Cardiovascular Exam: Present: regular rate, normal rhythm, normal heart sounds, systolic murmur (III/). Absent: diastolic murmur, rubs, gallop, clicks GI/Abdominal exam: Present: soft, normal bowel sounds. Absent: distended, tenderness, guarding, rebound, rigid Extremities exam: Present: normal inspection. Absent: pedal edema, joint swelling Back exam: Present: normal inspection Neurological exam: Present: alert, oriented X3, CN II-XII intact Psychiatric exam: Present: normal affect, normal mood Skin exam: Present: warm, dry, intact, normal color. Absent: rash Course Vital Signs 12/15/21 12/15/21 12/15/21 14:30 16:47 17:14 Temperature 98.1 F Pulse Rate 87 69 66 Respiratory 20 18 Rate Blood Pressure 153/67 141/71 O2 Sat by Pulse 96 95 Oximetry 12/15/21 17:23 Temperature Pulse Rate 58 L Respiratory Rate Blood Pressure O2 Sat by Pulse Oximetry Medical Decision Making - Medical Decision Making Patient is a 56-year-old female who presents with Dyspnea with exertion none at rest with known smoker and CAD history. Due to lack of associated symptoms low probability for CHF or pneumonia; higher probability for COPD exacerbation. Will check EKG, CMP, CBC, lactic acid, and troponin along with chest x-ray. Will give a dose of albuterol nebulized along while awaiting results. No need for supplemental oxygen. Saturating well on room air. Labs show elevated lactic acid at 2.1 however likely secondary to diabetes with elevated glucose at 220. No leukocytosis or hypoxia noted. Troponin negative. EKG without any acute changes. Awaiting chest x-ray results. Will give a dose of IV steroids as presentation more consistent with COPD exacerbation. Chest x-ray without acute cardiopulmonary process. Due to previous computed tomography scan recommend a follow-up will repeat computed tomography scan at this time without contrast. Pending results will plan for discharge home on oral steroids with follow-up as scheduled with pulmonary and her primary care provider. Computed tomography scan of the chest negative. There is probably hepatomegaly. No suspicious pulmonary masses. There is clearing of the minimal atelectasis interstitial density in the lung bases compared to old exam. No suspicious mass. Lungs have no infiltrate. Will proceed with discharge for follow-up with her primary care provider and pulmonary. Will provide prescription for Medrol Dosepak and albuterol inhaler to utilize as needed. Sensation encouraged. Case discussed with Dr. Valdovinos. - Lab Data Result diagrams: 12/15/21 15:14 12/15/21 15:14 Lab Results 12/15/21 12/15/21 12/15/21 Range/Units 15:14 15:14 15:14 WBC 7.1 (3.8-10.6) k/uL RBC 4.44 (3.80-5.40) m/uL Hgb 13.7 (11.4-16.0) gm/dL Hct 41.9 (34.0-46.0) % MCV 94.3 (80.0-100.0) fL MCH 30.8 (25.0-35.0) pg MCHC 32.7 (31.0-37.0) g/dL RDW 14.7 (11.5-15.5) % Plt Count 291 (150-450) k/uL MPV 7.0 Neutrophils % 67 % Lymphocytes % 22 % Monocytes % 6 % Eosinophils % 4 % Basophils % 1 % Neutrophils # 4.7 (1.3-7.7) k/uL Lymphocytes # 1.6 (1.0-4.8) k/uL Monocytes # 0.4 (0-1.0) k/uL Eosinophils # 0.3 (0-0.7) k/uL Basophils # 0.1 (0-0.2) k/uL PT 10.5 (9.0-12.0) sec INR 1.0 (<1.2) APTT 21.6 L (22.0-30.0) sec Sodium 139 (137-145) mmol/L Potassium 4.2 (3.5-5.1) mmol/L Chloride 102 (98-107) mmol/L Carbon Dioxide 28 (22-30) mmol/L Anion Gap 9 mmol/L BUN 20 H (7-17) mg/dL Creatinine 0.84 (0.52-1.04) mg/dL Est GFR (CKD-EPI)AfAm >90 (>60 ml/min/1.73 sqM) Est GFR (CKD-EPI)NonAf 78 (>60 ml/min/1.73 sqM) Glucose 206 H (74-99) mg/dL Lactic Ac Sepsis Rflx Plasma Lactic Acid Edison (0.7-2.0) mmol/L Calcium 9.7 (8.4-10.2) mg/dL Total Bilirubin 0.5 (0.2-1.3) mg/dL AST 32 (14-36) U/L ALT 27 (4-34) U/L Alkaline Phosphatase 45 (38-126) U/L Troponin I (0.000-0.034) ng/mL Total Protein 7.0 (6.3-8.2) g/dL Albumin 4.2 (3.5-5.0) g/dL 12/15/21 12/15/21 12/15/21 Range/Units 15:14 15:14 15:42 WBC (3.8-10.6) k/uL RBC (3.80-5.40) m/uL Hgb (11.4-16.0) gm/dL Hct (34.0-46.0) % MCV (80.0-100.0) fL MCH (25.0-35.0) pg MCHC (31.0-37.0) g/dL RDW (11.5-15.5) % Plt Count (150-450) k/uL MPV Neutrophils % % Lymphocytes % % Monocytes % % Eosinophils % % Basophils % % Neutrophils # (1.3-7.7) k/uL Lymphocytes # (1.0-4.8) k/uL Monocytes # (0-1.0) k/uL Eosinophils # (0-0.7) k/uL Basophils # (0-0.2) k/uL PT (9.0-12.0) sec INR (<1.2) APTT (22.0-30.0) sec Sodium (137-145) mmol/L Potassium (3.5-5.1) mmol/L Chloride (98-107) mmol/L Carbon Dioxide (22-30) mmol/L Anion Gap mmol/L BUN (7-17) mg/dL Creatinine (0.52-1.04) mg/dL Est GFR (CKD-EPI)AfAm (>60 ml/min/1.73 sqM) Est GFR (CKD-EPI)NonAf (>60 ml/min/1.73 sqM) Glucose (74-99) mg/dL Lactic Ac Sepsis Rflx Y Plasma Lactic Acid Edison 2.2 H* (0.7-2.0) mmol/L Calcium (8.4-10.2) mg/dL Total Bilirubin (0.2-1.3) mg/dL AST (14-36) U/L ALT (4-34) U/L Alkaline Phosphatase (38-126) U/L Troponin I <0.012 (0.000-0.034) ng/mL Total Protein (6.3-8.2) g/dL Albumin (3.5-5.0) g/dL - EKG Data EKG Comments: EKG shows sinus rhythm with old anterior myocardial infarct and old Inferior myocardial infarct. No acute changes. Ventricular rate 76 bpm, VT interval 140 ms, QRS duration 100 ms, QT/QTC 410/4 and 40 ms, PRT axes 68, 40, 108 - Radiology Data Radiology results: report reviewed, image reviewed CT of the chest without contrast shows the lungs are clear of infiltrate. Heart size is normal. No pericardial effusion. No pleural effusion. No suspicious pulmonary masses. There is clearing of minimal interstitial density at the lung bases compared to old exam. Chest x-ray shows no acute cardiopulmonary process. Disposition Clinical Impression: Acute exacerbation of chronic obstructive pulmonary disease Disposition: HOME SELF-CARE Condition: Stable Instructions (If sedation given, give patient instructions): How to Stop Smoking (ED), COPD (Chronic Obstructive Pulmonary Disease) (ED) Additional Instructions: Please complete steroid dose pack as prescribed. Utilize albuterol inhaler prescribed as needed for shortness of breath and wheezing. Smoking sensation encouraged. Please follow-up with pulmonary. Her already scheduled appointment next week. Please also follow-up with your primary care provider. Utilize sliding scale insulin to treat your blood sugars as they may be elevated during your steroid use. Please return to the Emergency Department if symptoms worsen or any other concerns. Prescriptions: methylPREDNISolone Dose Pack [Medrol Dose Pack] 4 mg PO DIRECTED #21 tab Albuterol Inhaler [Ventolin Hfa Inhaler] 1 - 2 puff INHALATION RT-Q6H PRN 30 Days #1 inh PRN Reason: Shortness Of Breath Is patient prescribed a controlled substance at d/c from ED?: No Referrals: Jose Brown MD [Primary Care Provider] - 1-2 days Time of Disposition: 18:10
[2021-12-15] MEDS ORDERED: methylPREDNISolone SOD SUCCI 125 MG/2 ML VIAL IV STA (16:26)
[2021-12-15 16:49] VITALS: RESP 18
--- NOTE | 2021-12-15 17:34 | CT ---
EXAMINATION TYPE: CT chest wo con DATE OF EXAM: 12/15/2021 COMPARISON: 01/11/2015 HISTORY: SOB x few days CT DLP: 792.2 mGycm Automated exposure control for dose reduction was used. Images obtained from the thoracic inlet to the diaphragm with no contrast The lungs are clear of infiltrate. Heart size is normal. No pericardial effusion. No pleural effusion . There are no hilar masses. There is no mediastinal adenopathy. There is 1 cm pretracheal lymph node. There is mild coronary artery calcification. The bony thorax is intact. There is some spurring in the thoracic spine. Sternum is intact. IMPRESSION: Negative CT scan of the chest. There is probably hepatomegaly. No suspicious pulmonary mass. There is clearing of the minimal interstitial density at the lung bases compared to old exam no suspicious pu lmonary mass.
[2021-12-15 18:25] VITALS: BP 135/62; PULSE 63
== END 2021-12-15 18:26 | disposition home or self-care (01) ==
LOC: EC 14:25
DX: J44.1 Chronic obstructive pulmonary disease with (acute) exacerbation (principal); I25.2 Old myocardial infarction; I11.0 Hypertensive heart disease with heart failure; I50.9 Heart failure, unspecified; E78.5 Hyperlipidemia, unspecified; F17.200 Nicotine dependence, unspecified, uncomplicated; E11.9 Type 2 diabetes mellitus without complications; I25.10 Atherosclerotic heart disease of native coronary artery without angina pectoris; K21.9 Gastro-esophageal reflux disease without esophagitis; E07.9 Disorder of thyroid, unspecified; Z95.1 Presence of aortocoronary bypass graft; Z79.899 Other long term (current) drug therapy; Z79.4 Long term (current) use of insulin; Z79.84 Long term (current) use of oral hypoglycemic drugs; Z79.82 Long term (current) use of aspirin; Z79.890 Hormone replacement therapy; Z79.02 Long term (current) use of antithrombotics/antiplatelets
CPT/HCPCS: 36415; 94640; 93005; 80053; 83605; 84484; 85025; 85610; 85730; 71046; 71250; 99285; 96374; J2930

== ENCOUNTER 2023-04-17 20:49 | Inpatient (IN) | payer MEDICARE, OTHER ==
--- NOTE | 2023-04-17 21:48 | ED ---
General Adult HPI - General Source: patient, RN notes reviewed <Renetta Mclaughlin - Last Filed: 04/17/23 21:44> - General Source: patient, RN notes reviewed, old records reviewed <Woo Baltazar - Last Filed: 04/18/23 05:42> - General Stated complaint: Neck Pain - History of Present Illness Initial comments: 57-year-old female presents to the emergency department with chief complaint of pain radiating to her neck 3 days. She reports that this is been happening at night and she has been taking her nitroglycerin which improved the symptoms. She states she has had a prior surgery around 10 years ago and she had similar symptoms over time of her prior heart attack. She states that she took a nitroglycerin after the episode this evening. She states she is not currently having any symptoms but feels that if she walks a long distance it would come back. (Renetta Mclaughlin) Patient is a 57-year-old female with past medical history remarkable for CAD, multiple cardiac stents, heart failure, diabetes, hypertension, thyroid disorder who presents emergency Department complaining of chest pain radiating to the neck and jaw. It is intermittent over the last 3 days. No known palliative or provocative factors. Nitro seemed to help with the pain at home. Currently is asymptomatic. This pain several hours ago. Presents emergency department for further evaluation. No other acute complaints including denying radiation of the pain to the arms, denying nausea or vomiting, denying lightheadedness. Patient originally started as a quick note.When I evaluated the patient, patient is asymptomatic. No chest pain at this time. (Woo Baltazar) - Related Data Home Medications Medication Instructions Recorded Confirmed ARIPiprazole [Abilify] 30 mg PO HS 04/25/14 08/30/21 Aspirin 162 mg PO DAILY 04/25/14 08/30/21 Clopidogrel Bisulfate [Clopidogrel] 75 mg PO QAM 04/25/14 08/30/21 Ferrous Sulfate [Iron (65 MG 65 mg PO DAILY #0 04/25/14 08/30/21 Elemental)] Hydrocodone/Acetaminophen 1 tab PO Q6H PRN 04/25/14 08/30/21 [Hydrocodon-Acetaminoph 7.5-325] Levothyroxine Sodium [Synthroid] 137 mcg PO DAILY 04/25/14 08/30/21 Spironolactone [Aldactone] 25 mg PO DAILY 04/25/14 08/30/21 carvediloL [Carvedilol] 6.25 mg PO DAILY 04/25/14 08/30/21 diphenhydrAMINE [Benadryl] 50 mg PO HS 04/25/14 08/30/21 lisinopriL [Lisinopril] 10 mg PO DAILY 04/25/14 08/30/21 Rosuvastatin Calcium [Crestor] 40 mg PO DAILY 01/11/15 08/30/21 Cholecalciferol (Vitamin D3) 5,000 units PO DAILY 08/21/15 08/30/21 [Vitamin D3] Canagliflozin [Invokana] 100 mg PO DAILY 04/19/19 08/30/21 Evolocumab [Repatha Sureclick] 140 mg SQ Q14D 04/19/19 08/28/21 Furosemide [Lasix] 40 mg PO BID 04/19/19 08/30/21 Isosorbide Mononitrate ER [Imdur] 30 mg PO DAILY 04/19/19 08/30/21 busPIRone HCL 30 mg PO BID 04/19/19 08/30/21 Fenofibrate [Lofibra] 160 mg PO DAILY 08/14/21 08/30/21 Gabapentin [Neurontin] 300 mg PO TID 08/14/21 08/30/21 Insulin Regular, Human [humulin R 40 unit SQ HS 08/14/21 08/30/21 U-500 Kwikpen] Insulin Regular, Human [humulin R 80 unit SQ W/LUNCH 08/14/21 08/30/21 U-500 Kwikpen] Insulin Regular, Human [humulin R 105 unit SQ W/SUPPER 08/14/21 08/30/21 U-500 Kwikpen] Insulin Regular, Human [humulin R 150 unit SQ W/BRKFST 08/14/21 08/30/21 U-500 Kwikpen] Pantoprazole [Protonix] 40 mg PO BID 08/14/21 08/30/21 icosapent ethyL [Vascepa] 1,000 gm PO BID 08/14/21 08/30/21 Previous Rx's Medication Instructions Recorded Albuterol Inhaler [Ventolin Hfa 1 - 2 puff INHALATION RT-Q6H PRN 12/15/21 Inhaler] 30 Days #1 inh methylPREDNISolone Dose Pack 4 mg PO DIRECTED #21 tab 12/15/21 [Medrol Dose Pack] Allergies Allergy/AdvReac Type Severity Reaction Status Date / Time No Known Allergies Allergy Verified 12/15/21 14:31 Review of Systems ROS Other: All systems not noted in ROS Statement are negative. <Renetta Mclaughlin - Last Filed: 04/17/23 21:44> ROS Other: All systems not noted in ROS Statement are negative. <Woo Baltazar - Last Filed: 04/18/23 05:42> ROS Statement: Those systems with pertinent positive or pertinent negative responses have been documented in the HPI. Review of Systems: CONST: Denies fever EYES: Denies blurry vision ENT: Denies nasal congestion C/V: Endorses chest pain RESP: Denies shortness of breath GI: Denies abdominal pain : Denies dysuria SKIN: Denies rash. MSK: Denies joint pain. NEURO: Denies headache (Woo Baltazar) Past Medical History Past Medical History: Blood Disorder, Coronary Artery Disease (CAD), Chest Pain / Angina, Heart Failure, Diabetes Mellitus, GERD/Reflux, Hyperlipidemia, Hypertension, Myocardial Infarction (non Q-wave), Pneumonia, Skin Disorder (Eczema), Thyroid Disorder Additional Past Medical History / Comment(s): Overactive bladder and anemia Last Myocardial Infarction Date:: 2002 History of Any Multi-Drug Resistant Organisms: None Reported Past Surgical History: Section, Coronary Bypass/CABG, Heart Catheterization With Stent Additional Past Surgical History / Comment(s): QUAD BYPASS 2012. REMOVAL OVARIAN CYST, COLONOSCOPY Past Anesthesia/Blood Transfusion Reactions: No Reported Reaction Date of Last Stent Placement:: 08/30/21 Past Psychological History: Anxiety, Bipolar, Depression, PTSD Smoking Status: Current every day smoker Past Alcohol Use History: Occasional Past Drug Use History: Marijuana - Past Family History Sister(s) Family Medical History: Cancer Additional Family Medical History / Comment(s): Uterine & Kidney. <Renetta Mclaughlin - Last Filed: 04/17/23 21:44> General Exam <Renetta Mclaughlin - Last Filed: 04/17/23 21:44> <Woo Baltazar - Last Filed: 04/18/23 05:42> - General Exam Comments Initial Comments: Visual Physical Exam Vital signs reviewed General: Well-appearing, nontoxic, no acute distress. Head: Normocephalic, atraumatic Eyes: PERRLA, EOMI ENT: Airway patent Chest: Nonlabored breathing Skin: No visual rash, normal skin tone Neuro: Alert and oriented 3 Musculoskeletal: No gross abnormalities (Renetta Mclaughlin) General: Appears in no acute distress. HEAD: Normal with no signs of head trauma. EYES: PERRLA, EOMI, conjunctiva normal, no discharge. ENT: Hearing grossly intact, normal oropharynx. RESPIRATORY: Clear breath sounds bilaterally. No wheezes, rales, or rhonchi. C/V: Regular rate and rhythm. S1 and S2 auscultated, no edema, peripheral pulses 2+ and intact throughout ABD: Abd is soft, nontender, nondistended EXT: Normal range of motion, no obvious deformity SKIN: No rashes or lesions observed on exposed skin. NEURO: Alert and oriented x 4. (Woo Baltazar) Course Vital Signs 04/17/23 04/18/23 21:48 01:40 Temperature 98.2 F Pulse Rate 90 71 Respiratory 18 18 Rate Blood Pressure 128/75 145/67 O2 Sat by Pulse 97 94 L Oximetry Medical Decision Making <Renetta Mclaughlin - Last Filed: 04/17/23 21:44> - Lab Data Result diagrams: 04/17/23 23:12 04/17/23 23:12 - EKG Data -: EKG Interpreted by Me <Woo Baltazar - Last Filed: 04/18/23 05:42> - Medical Decision Making Quick note preformed by Renetta Mclaughlin PA-C (Renetta Mclaughlin) Was pt. sent in by a medical professional or institution (HERMILO Mcmanus, SENIOR MECHANICAL ENGINEER, urgent care, hospital, or [facility]...) When possible be specific @ -No Did you speak to anyone other than the patient for history (EMS, parent, family, police, friend...)? What history was obtained from this source @ -No Did you review nursing and triage notes (agree or disagree)? Why? @ -I reviewed and agree with nursing and triage notes Were old charts reviewed (outside hosp., previous admission, EMS record, old EKG, old radiological studies, urgent care reports/EKG's, [facility] records)? Report findings @ -Old charts reviewed Differential Diagnosis (chest pain, altered mental status, abdominal pain women, abdominal pain men, vaginal bleeding, weakness, fever, dyspnea, syncope, headache, dizziness, GI bleed, back pain, seizure, CVA, palpatations, mental health, musculoskeletal)? @ -Differential Chest Pain: Stable Angina, Unstable Angina, STEMI, NSTEMI Aortic Dissection, Pneumothorax, Musculoskeletal, Esophageal Spasm GERD, Cholecystitis, Pancreatitis, Zoster, this is not meant to be an all-inclusive list. EKG interpreted by me (3pts min.). @ -As above X-rays interpreted by me (1pt min.). @ -Chest x-ray reveals no obvious acute cardio pulmonary process CT interpreted by me (1pt min.). @ -None done U/S interpreted by me (1pt. min.). @ -None done What testing was considered but not performed or refused? (CT, X-rays, U/S, labs)? Why? @ -None What meds were considered but not given or refused? Why? @ -None Did you discuss the management of the patient with other professionals (professionals i.e. , PA, SENIOR MECHANICAL ENGINEER, lab, RT, psych nurse, long term care social worker, continuity director, teacher, animal services officer, upper caser)? Give summary @ - Discussed with the admitting team, Dr. Ronnie BARTON to accept the patient. Was smoking cessation discussed for >3mins.? @ -No Was critical care preformed (if so, how long)? @ -Yes, 35 minutes Were there social determinants of health that impacted care today? How? (Homelessness, low income, unemployed, alcoholism, drug addiction, transportation, low edu. Level, literacy, decrease access to med. care, fci, rehab)? @ -No Was there de-escalation of care discussed even if they declined (Discuss DNR or withdrawal of care, Hospice)? DNR status @ -No What co-morbidities impacted this encounter? (DM, HTN, Smoking, COPD, CAD, Cancer, CVA, ARF, Chemo, Hep., AIDS, mental health diagnosis, sleep apnea, morbi d obesity)? @ -None Was patient admitted / discharged? Hospital course, mention meds given and route, prescriptions, significant lab abnormalities, going to OR and other pertinent info. @ -Based on the patient's presentation and physical exam, presents with chest pain. Currently asymptomatic. Initially worked up as a quick note. Vital si gns within acceptable limits. Patient was brought back to trauma bay 2 was found that she had an elevated troponin of 0.108. Remainder of her labs are within acceptable limits. Patient is currently asymptomatic. Vital signs remained within acceptable limits. EKG showed no acute changes or signs of acute ischemia. Imaging unremarkable. Patient was in Mr. drinking 24 millions of aspirin at this time, I discussed with her we will trend the troponin. She'll be started on a heparin drip for h er NSTEMI. She was in agreement this plan. Cardiology consulted. Nitro did help with her pain earlier and therefore Nitropaste was ordered for the patient as well. She remains asymptomatic. She'll be admitted to the hospital. It is been multiple hours since her pain has subsided. I spoke with the admitting team,who accepted the patient. Undiagnosed new problem with uncertain prognosis? @ -No Drug Therapy requiring intensive monitoring for toxicity (Heparin, Nitro, Insulin, Cardizem)? @ -No Were any procedures done? @ -No Diagnosis/symptom? @ -Chest pain, NSTEMI Acute, or Chronic, or Acute on Chronic? @ -Acute Uncomplicated (without systemic symptoms) or Complicated (systemic symptoms)? @ -Complicated Side effects of treatment? @ -No Exacerbation, Progression, or Severe Exacerbation? @ -No Poses a threat to life or bodily function? How? (Chest pain, [place], AR, pneumonia, PE, COPD, DKA, ARF, appy, cholecystitis, CVA, Diverticulitis, Homicidal, Suicidal, threat to staff... and all critical care pts) @ -Yes (Woo Baltazar) - Lab Data Lab Results 04/17/23 04/17/23 04/17/23 Range/Units 23:12 23:12 23:12 WBC 8.5 (3.8-10.6) k/uL RBC 4.95 (3.80-5.40) m/uL Hgb 15.4 (11.4-16.0) gm/dL Hct 46.4 H (34.0-46.0) % MCV 93.6 (80.0-100.0) fL MCH 31.2 (25.0-35.0) pg MCHC 33.3 (31.0-37.0) g/dL RDW 14.5 (11.5-15.5) % Plt Count 310 (150-450) k/uL MPV 7.0 Neutrophils % 61 % Lymphocytes % 28 % Monocytes % 5 % Eosinophils % 4 % Basophils % 1 % Neutrophils # 5.2 (1.3-7.7) k/uL Lymphocytes # 2.4 (1.0-4.8) k/uL Monocytes # 0.4 (0-1.0) k/uL Eosinophils # 0.3 (0-0.7) k/uL Basophils # 0.1 (0-0.2) k/uL PT 10.4 (10.0-12.5) sec INR 0.9 (<1.2) APTT 22.2 (22.0-30.0) sec Sodium 138 (137-145) mmol/L Potassium 3.8 (3.5-5.1) mmol/L Chloride 98 (98-107) mmol/L Carbon Dioxide 27 (22-30) mmol/L Anion Gap 13 mmol/L BUN 18 H (7-17) mg/dL Creatinine 0.68 (0.52-1.04) mg/dL Est GFR (CKD-EPI)AfAm >90 (>60 ml/min/1.73 sqM) Est GFR (CKD-EPI)NonAf >90 (>60 ml/min/1.73 sqM) Glucose 102 H (74-99) mg/dL Calcium 9.7 (8.4-10.2) mg/dL Magnesium 1.8 (1.6-2.3) mg/dL Total Bilirubin 0.6 (0.2-1.3) mg/dL AST 35 (14-36) U/L ALT 24 (4-34) U/L Alkaline Phosphatase 42 (38-126) U/L Troponin I (0.000-0.034) ng/mL Total Protein 7.7 (6.3-8.2) g/dL Albumin 4.5 (3.5-5.0) g/dL 04/17/23 04/18/23 Range/Units 23:12 01:36 WBC (3.8-10.6) k/uL RBC (3.80-5.40) m/uL Hgb (11.4-16.0) gm/dL Hct (34.0-46.0) % MCV (80.0-100.0) fL MCH (25.0-35.0) pg MCHC (31.0-37.0) g/dL RDW (11.5-15.5) % Plt Count (150-450) k/uL MPV Neutrophils % % Lymphocytes % % Monocytes % % Eosinophils % % Basophils % % Neutrophils # (1.3-7.7) k/uL Lymphocytes # (1.0-4.8) k/uL Monocytes # (0-1.0) k/uL Eosinophils # (0-0.7) k/uL Basophils # (0-0.2) k/uL PT (10.0-12.5) sec INR (<1.2) APTT (22.0-30.0) sec Sodium (137-145) mmol/L Potassium (3.5-5.1) mmol/L Chloride (98-107) mmol/L Carbon Dioxide (22-30) mmol/L Anion Gap mmol/L BUN (7-17) mg/dL Creatinine (0.52-1.04) mg/dL Est GFR (CKD-EPI)AfAm (>60 ml/min/1.73 sqM) Est GFR (CKD-EPI)NonAf (>60 ml/min/1.73 sqM) Glucose (74-99) mg/dL Calcium (8.4-10.2) mg/dL Magnesium (1.6-2.3) mg/dL Total Bilirubin (0.2-1.3) mg/dL AST (14-36) U/L ALT (4-34) U/L Alkaline Phosphatase (38-126) U/L Troponin I 0.108 H* 0.118 H* (0.000-0.034) ng/mL Total Protein (6.3-8.2) g/dL Albumin (3.5-5.0) g/dL - EKG Data EKG Comments: 12-lead Electrocardiogram Interpretation Note EKG was reviewed and interpreted by myself. 12-lead ECG performed at 2314 is interpreted by me as revealing normal sinus rhythm at a rate of 75 beats per minute. [place] is rightward deviated. WA intervals 179 ms, QRS duration is 108 ms, QTc is 420 ms.. There were no significant acute ST or T wave abnormalities to suggest myocardial ischemia or injury. R wave progression across the precordium was satisfactory. By my interpretation this EKG is non-diagnostic for acute ischemia. 12-lead Electrocardiogram Interpretation Note EKG was reviewed and interpreted by myself. 12-lead ECG performed at 0133 is interpreted by me as revealing normal sinus rhythm at a rate of 78 beats per minute. Borderline axis, slightly rightward deviated. WA intervals 181 ms. QRS duration is 99 ms. QTC is 430 ms.. There were no significant acute ST or T wave abnormalities to suggest myocardial ischemia or injury. R wave progression across the precordium was satisfactory. By my interpretation this EKG is non- diagnostic for acute ischemia. Compared with EKG from November 2021 with no significant change. (Woo Baltazar) Critical Care Time Critical Care Time: Yes Total Critical Care Time: 35 <Woo Baltazar - Last Filed: 04/18/23 05:42> Disposition <Renetta Mclaughlin - Last Filed: 04/17/23 21:44> Is patient prescribed a controlled substance at d/c from ED?: No Time of Disposition: 02:30 <Woo Baltazar - Last Filed: 04/18/23 05:42> Clinical Impression: Chest pain, Acute non-ST elevation myocardial infarction (NSTEMI) Disposition: ADMITTED IP TO THIS HOSP Condition: Stable
--- NOTE | 2023-04-17 22:35 | XR ---
EXAM: XR Chest, 2 Views CLINICAL HISTORY: ITS.REASON XR Reason: Chest Pain TECHNIQUE: Frontal and lateral views of the chest. COMPARISON: No relevant prior studies available. FINDINGS: Lungs: Unremarkable. No consolidation. Pleural space: Unremarkable. No pneumothorax. Heart: Cardiomegaly. Mediastinum: Unremarkable. Normal mediastinal contour. Bones/joints: Sternotomy wires. No acute fracture. IMPRESSION: No acute findings in the chest.
[2023-04-17 23:38] LABS: Basophils # (A) 0.1 k/uL (0-0.2); Basophils % (A) 1 %; Eosinophils # (A) 0.3 k/uL (0-0.7); Eosinophils % (A) 4 %; HCT 46.4 % (34.0-46.0); HGB 15.4 gm/dL (11.4-16.0); Lymphocytes # (A) 2.4 k/uL (1.0-4.8); Lymphocytes % (A) 28 %; MCH 31.2 pg (25.0-35.0); MCHC 33.3 g/dL (31.0-37.0); MCV 93.6 fL (80.0-100.0); Monocytes # (A) 0.4 k/uL (0-1.0); Monocytes % (A) 5 %; Neutrophils # (A) 5.2 k/uL (1.3-7.7); Neutrophils % (A) 61 %; Platelet Count 310 k/uL (150-450); RBC 4.95 m/uL (3.80-5.40); RDW 14.5 % (11.5-15.5); WBC 8.5 k/uL (3.8-10.6)
[2023-04-17 23:57] LABS: ALT 24 U/L (4-34); African American GFR (CKD) >90 (>60 ml/min/1.73 sqM); Albumin 4.5 g/dL (3.5-5.0); Anion Gap 13 mmol/L; Blood Urea Nitrogen 18 mg/dL (7-17); Calcium 9.7 mg/dL (8.4-10.2); Carbon Dioxide 27 mmol/L (22-30); Chloride 98 mmol/L (98-107); Glucose 102 mg/dL (74-99); Non-African American GFR(CKD) >90 (>60 ml/min/1.73 sqM); Sodium 138 mmol/L (137-145); Total Bilirubin 0.6 mg/dL (0.2-1.3); Total Protein 7.7 g/dL (6.3-8.2)
[2023-04-17 23:58] LABS: INR 0.9 (<1.2); Partial Thromboplastin Time 22.2 sec (22.0-30.0); Prothrombin Time 10.4 sec (10.0-12.5)
[2023-04-18 00:03] LABS: AST 35 U/L (14-36); Alkaline Phosphatase 42 U/L (38-126); Magnesium 1.8 mg/dL (1.6-2.3); Potassium 3.8 mmol/L (3.5-5.1)
[2023-04-18] MEDS ORDERED: ASPIRIN 81 MG PO STA (01:45)
[2023-04-18] MEDS ORDERED: HEPARIN SODIUM 1,000 UN/ML (10ML VL) IV ONE (02:18)
[2023-04-18] MEDS ORDERED: NALOXONE 0.4 MG/ML 1 ML VIAL IV PRN (02:50)
[2023-04-18] MEDS: HEPARIN SOD,PORK IN 0.45% NACL 25,000 UNIT in 0.45% NACL 1 250ML.BAG IV SCH ×2 (03:01→10:26)
[2023-04-18] MEDS: NITROGLYCERIN OINT 1 INCH/GM PACKET TOPICAL SCH ×2 (03:03→08:04)
[2023-04-18] MEDS ORDERED: DEXTROSE 50% SYRINGE 50 ML IVP PRN ×2 (05:59)
[2023-04-18 07:56] LABS: Glucose,Whole Blood 183 mg/dL (70-110)
[2023-04-18] MEDS: INSULIN ASPART (NovoLOG) 100 UNIT/ML VIAL SQ SCH ×4 (08:03→21:23)
[2023-04-18] MEDS: SODIUM CHLORIDE 0.9% 1,000 ML IV SCH ×2 (08:06→21:07)
[2023-04-18] MEDS ORDERED: NITROGLYCERIN SL TABS 0.4 MG TAB SUBLINGUAL PRN ×2 (09:57→18:43)
[2023-04-18] MEDS ORDERED: ASPIRIN 325 MG TAB PO STA (09:57)
[2023-04-18] MEDS ORDERED: ATORVASTATIN 80 MG TAB PO STA (09:57)
[2023-04-18] MEDS ORDERED: ALPRAZolam 0.25 MG TAB PO PRN (09:57)
[2023-04-18] MEDS ORDERED: carvediloL 6.25 MG TAB PO SCH (10:00)
[2023-04-18] MEDS: ATORVASTATIN 80 MG TAB PO SCH (10:03)
[2023-04-18] MEDS: ASPIRIN 81 MG PO SCH (10:25)
[2023-04-18] MEDS: HEPARIN SODIUM 1,000 UN/ML (10ML VL) IV PRN ×2 (10:25→17:03)
[2023-04-18] MEDS: FUROSEMIDE 40 MG TAB PO SCH ×2 (10:25→15:41)
[2023-04-18] MEDS: CLOPIDOGREL 75 MG TAB PO SCH (10:25)
[2023-04-18] MEDS: RANOLAZINE 500 MG TAB.ER.12H PO SCH ×2 (10:25→20:13)
[2023-04-18] MEDS: ISOSORBIDE MONONITRATE ER 30 MG TAB.ER.24H PO SCH (10:25)
[2023-04-18] MEDS: carvediloL 12.5 MG TAB PO SCH ×2 (10:25→21:23)
[2023-04-18] MEDS: lisinopriL 10 MG TAB PO SCH (10:25)
[2023-04-18] MEDS: SODIUM CHLORIDE 0.9% 1,000 ML in EMPTY BAG 1 BAG IV SCH ×2 (10:30→21:29)
--- NOTE | 2023-04-18 11:47 | P.HPIM ---
History of Present Illness H&P Date: 04/18/23 Chief Complaint: Chest pain * 57-year-old patient with past medical history significant for coronary artery disease, history of diabetes mellitus, hypertension, hyperlipidemia, presents to the emergency department with complains of chest pain. Patient has been having intermittent chest discomfort radiating to the neck for the last 72 hours. Patient states she took nitroglycerin with's improvement in her symptoms. Patient does have history of PCI was previously seen by cardiology in 2021. She did complain of associated nausea and dry heaves * Workup initiated in ER included an EKG which showed sinus rhythm, no significant ST segment changes were noted * Chest x-ray obtained in ER negative for acute finding * Workup initiated in ER included basic metabolic panel which showed sodium 138 potassium 3.8, Ember 20 7B on 18 creatinine 0.68, CBC obtained showed WBC 8.5 hemoglobin 15 platelet count of 310 INR of 0.9 * Workup initiated in ER included workup for ACS, patient started on IV heparin, given aspirin consultation obtained from cardiology. REVIEW OF SYSTEMS: Chest pain, neck pain over nausea and dry heaves CONSTITUTIONAL: No fever, no malaise, no fatigue. HEENT: No recent visual problems or hearing problems. Denied any sore throat. CARDIOVASCULAR: No chest pain, orthopnea, PND, no palpitations, no syncope. PULMONARY: No shortness of breath, no cough, no hemoptysis. GASTROINTESTINAL: No diarrhea, no nausea, no vomiting, no abdominal pain. NEUROLOGICAL: No headaches, no weakness, no numbness. HEMATOLOGICAL: Denies any bleeding or petechiae. GENITOURINARY: Denies any burning micturition, frequency, or urgency. MUSCULOSKELETAL/RHEUMATOLOGICAL: Denies any joint pain, swelling, or any muscle pain. ENDOCRINE: Denies any polyuria or polydipsia. PHYSICAL EXAMINATION: GENERAL: The patient is alert and oriented x3, not in any acute distress. Ill appearance HEENT: Pupils are round and equally reacting to light. EOMI. CARDIOVASCULAR: S1 and S2 present. No murmurs, rubs, or gallops. PULMONARY: Chest is clear to auscultation, no wheezing or crackles. ABDOMEN: Soft, nontender, nondistended, normoactive bowel sounds. No palpable organomegaly. MUSCULOSKELETAL: No joint swelling or deformity. EXTREMITIES: No cyanosis, clubbing, or pedal edema. NEUROLOGICAL: Gross neurological examination did not reveal any focal deficits. SKIN: No rashes. Past Medical History Past Medical History: Blood Disorder, Coronary Artery Disease (CAD), Chest Pain / Angina, Heart Failure, Diabetes Mellitus, GERD/Reflux, Hyperlipidemia, Hypertension, Myocardial Infarction (non Q-wave), Pneumonia, Skin Disorder, Thyroid Disorder Additional Past Medical History / Comment(s): Overactive bladder and anemia Last Myocardial Infarction Date:: 2002 History of Any Multi-Drug Resistant Organisms: None Reported Past Surgical History: Section, Coronary Bypass/CABG, Heart Catheterization With Stent Additional Past Surgical History / Comment(s): QUAD BYPASS 2012. REMOVAL OVARIAN CYST, COLONOSCOPY Past Anesthesia/Blood Transfusion Reactions: No Reported Reaction Date of Last Stent Placement:: 08/30/21 Past Psychological History: Anxiety, Bipolar, Depression, PTSD Smoking Status: Current every day smoker Past Alcohol Use History: Occasional Past Drug Use History: Marijuana - Past Family History Sister(s) Family Medical History: Cancer Additional Family Medical History / Comment(s): Uterine & Kidney. Medications and Allergies Home Medications Medication Instructions Recorded Confirmed Type ARIPiprazole [Abilify] 20 mg PO HS 04/25/14 04/18/23 History Aspirin 81 mg PO DAILY 04/25/14 04/18/23 History Clopidogrel Bisulfate [Clopidogrel] 75 mg PO QAM 04/25/14 04/18/23 History Ferrous Sulfate [Iron (65 MG 65 mg PO DAILY #0 04/25/14 04/18/23 History Elemental)] Hydrocodone/Acetaminophen 1 tab PO Q6H PRN 04/25/14 04/18/23 History [Hydrocodon-Acetaminoph 7.5-325] Levothyroxine Sodium [Synthroid] 137 mcg PO DAILY 04/25/14 04/18/23 History carvediloL [Carvedilol] 6.25 mg PO DAILY 04/25/14 04/18/23 History diphenhydrAMINE [Benadryl] 50 mg PO HS 04/25/14 04/18/23 History lisinopriL [Lisinopril] 10 mg PO DAILY 04/25/14 04/18/23 History Rosuvastatin Calcium [Crestor] 40 mg PO DAILY 01/11/15 04/18/23 History Furosemide [Lasix] 40 mg PO BID 04/19/19 04/18/23 History Isosorbide Mononitrate ER [Imdur] 30 mg PO DAILY 04/19/19 04/18/23 History busPIRone HCL 15 mg PO TID 04/19/19 04/18/23 History Fenofibrate [Lofibra] 160 mg PO DAILY 08/14/21 04/18/23 History Gabapentin [Neurontin] 300 mg PO TID 08/14/21 04/18/23 History Insulin Regular, Human [humulin R 55 unit SQ HS 08/14/21 04/18/23 History U-500 Kwikpen] Insulin Regular, Human [humulin R 80 unit SQ W/LUNCH 08/14/21 04/18/23 History U-500 Kwikpen] Insulin Regular, Human [humulin R 125 unit SQ W/SUPPER 08/14/21 04/18/23 History U-500 Kwikpen] Insulin Regular, Human [humulin R 180 unit SQ W/BRKFST 08/14/21 04/18/23 History U-500 Kwikpen] Pantoprazole [Protonix] 40 mg PO BID 08/14/21 04/18/23 History Albuterol Inhaler [Ventolin Hfa 1 - 2 puff INHALATION RT-Q6H PRN 12/15/21 04/18/23 Rx Inhaler] 30 Days #1 inh Cetirizine HCl [Zyrtec] 10 mg PO DAILY 04/18/23 04/18/23 History Insulin Regular, Human [humulin R 50 unit SQ DIRECTED 04/18/23 04/18/23 History U-500 Kwikpen] Montelukast [Singulair] 10 mg PO HS 04/18/23 04/18/23 History Nitroglycerin Sl Tabs [Nitrostat] 0.4 mg SUBLINGUAL Q5M PRN 04/18/23 04/18/23 History Tirzepatide [Mounjaro] 7.5 mg SQ Q7D 04/18/23 04/18/23 History carvediloL [Coreg] 3.125 mg PO HS 04/18/23 04/18/23 History Allergies Allergy/AdvReac Type Severity Reaction Status Date / Time No Known Allergies Allergy Verified 04/18/23 08:59 Physical Exam Vitals: Vital Signs Temp Pulse Resp BP Pulse Ox 04/18/23 06:59 75 20 157/68 95 12/01/23 01:40 71 18 145/67 94 L 04/17/23 21:48 98.2 F 90 18 128/75 97 Intake and Output 04/17/23 04/18/23 04/18/23 22:59 06:59 14:59 Other: Weight 105.233 kg Results CBC & Chem 7: 04/17/23 23:12 04/17/23 23:12 Labs: Abnormal Lab Results - Last 24 Hours (Table) 04/17/23 04/17/23 04/17/23 Range/Units 23:12 23:12 23:12 Hct 46.4 H (34.0-46.0) % BUN 18 H (7-17) mg/dL Glucose 102 H (74-99) mg/dL POC Glucose (mg/dL) (70-110) mg/dL Troponin I 0.108 H* (0.000-0.034) ng/mL 04/18/23 04/18/23 04/18/23 Range/Units 01:36 04:37 07:54 Hct (34.0-46.0) % BUN (7-17) mg/dL Glucose (74-99) mg/dL POC Glucose (mg/dL) 183 H (70-110) mg/dL Troponin I 0.118 H* 0.108 H* (0.000-0.034) ng/mL Assessment and Plan Assessment: Assessment and plan * Coronary artery disease with non-ST elevated PR * History of CABG 2012 * Hypertension and hyperlipidemia * Peripheral vascular disease * Diabetes mellitus type 2 * Hypothyroid * In regards to non-ST elevated PR, coronary artery disease/history of CABG continue patient on IV heparin, cardiology consulted, echocardiogram ordered, continue telemetry monitoring * In regards to history of hypertension, will resume home medications including Coreg, Imdur * In regards to history of diabetes mellitus, continue correctional insulin, monitor for hypoglycemia, will resume home regimen for Lantus * In regards to hypothyroid continue Synthyroid * CODE STATUS is full code Time with Patient: Greater than 30
--- NOTE | 2023-04-18 12:31 | P.CRDCN ---
History of Present Illness History of present illness: HISTORY OF PRESENT ILLNESS: This is a 57-year-old female with a past medical history significant for coronary artery disease with previous CABG and stenting, hypertension, hyperlipidemia, diabetes, carotid atherosclerosis, peripheral vascular disease, and ongoing nicotine dependence. Patient follows in the office with Dr. Townsend. We have been asked to see the patient in consultation for non-STEMI. Patient examined at the bedside in the emergency room. Patient states she has been having chest discomfort over the past 3 days. She states the pain can happen at rest and also with exertion. She states the pain starts in her neck and radiates into her jaw. She states that she has taken sublingual nitro for the past 3 days. She states the first day she took it 2 times the second day, she took it 2 times, and the third day she required 4 doses of sublingual nitro. The patient presented to the hospital for further evaluation. The patient was found to have elevated troponins and started on IV heparin. * EKG reveals sinus mechanism with no signs of acute ischemia * Chest xray negative for acute findings * Laboratory data: Troponin 0.108. 0.118. 0.108. 0.104. * Current home cardiac medications include aspirin 81 mg daily, Plavix 75 mg daily, Lasix 40 mg twice a day, Imdur 30 mg daily, rosuvastatin 40 mg daily, carvedilol 6.25 mg in the morning and 3.125 mg at night, and lisinopril 10 mg daily. * Most recent echocardiogram obtained in June 2021 revealing normal ejection fraction, mild MR, mild TR * Patient underwent 3 vessel CABG in December 2012 with SANTIAGO to LAD, SVG to diagonal 1, and SVG to OM1 * Cardiac catheterization history: August 2021 revealing patent jump SVG going to the LAD and OM, occluded SVG to PDA off circumflex, mild in-stent restenosis involving mid coronary artery. Patient underwent stenting of the SVG to PDA of left circumflex. REVIEW OF SYSTEMS: At the time of my exam: CONSTITUTIONAL: Denies fever or chills. HEENT: Denies blurred vision, vision changes, or eye pain. Denies hemoptysis CARDIOVASCULAR: Denies chest pain. Denies orthopnea. Denies PND. Denies palpitations RESPIRATORY: Denies shortness of breath. GASTROINTESTINAL: Denies abdominal pain. Denies nausea or vomiting. HEMATOLOGIC: Denies bleeding disorders. GENITOURINARY: Denies any blood in urine. SKIN: Denies pruitis. Denies rash. PHYSICAL EXAM: VITAL SIGNS: Reviewed. GENERAL: Well-developed in no acute distress. HEENT: Head is normocephalic. Pupils are equal, round. Sclerae anicteric. Mucous membranes of the mouth are moist. Neck supple. No JVD or thyromegaly LUNGS: Respirations even and unlabored. Lungs essentially clear to auscultation bilaterally, diminished. HEART: Regular rate and rhythm. S1 and S2 heard. ABDOMEN: Soft. Nondistended. Nontender. EXTREMITIES: Normal range of motion. No clubbing or cyanosis. Peripheral pulses intact. No lower extremity edema NEUROLOGIC: Awake and alert. Oriented x 3. ASSESSMENT: Non-STEMI Coronary artery disease with previous three-vessel CABG in 2012 with subsequent stenting, most recently in August 2021 Hypertension Hyperlipidemia Diabetes Carotid atherosclerosis Peripheral vascular disease Ongoing nicotine dependence Marijuana use PLAN: Obtain 2-D echo to assess cardiac structure and function Resume home cardiac medications Continue IV heparin Increase carvedilol to 12.5 mg twice a day Add Ranexa 500 mg twice a day Patient to undergo cardiac catheterization today with Dr. Townsend Smoking cessation recommended Abstinence from marijuana use encouraged Further recommendations pending patient's course Nurse practitioner note has been reviewed by physician. Signing provider agrees with the documented findings, assessment, and plan of care. Past Medical History Past Medical History: Blood Disorder, Coronary Artery Disease (CAD), Chest Pain / Angina, Heart Failure, Diabetes Mellitus, GERD/Reflux, Hyperlipidemia, Hy pertension, Myocardial Infarction (non Q-wave), Pneumonia, Skin Disorder, Thyroid Disorder Additional Past Medical History / Comment(s): Overactive bladder and anemia Last Myocardial Infarction Date:: 2002 History of Any Multi-Drug Resistant Organisms: None Reported Past Surgical History: Section, Coronary Bypass/CABG, Heart Catheterization With Stent Additional Past Surgical History / Comment(s): QUAD BYPASS 2012. REMOVAL OVARIAN CYST, COLONOSCOPY Past Anesthesia/Blood Transfusion Reactions: No Reported Reaction Date of Last Stent Placement:: 08/30/21 Past Psychological History: Anxiety, Bipolar, Depression, PTSD Smoking Status: Current every day smoker Past Alcohol Use History: Occasional Past Drug Use History: Marijuana - Past Family History Sister(s) Family Medical History: Cancer Additional Family Medical History / Comment(s): Uterine & Kidney. Medications and Allergies Home Medications Medication Instructions Recorded Confirmed Type ARIPiprazole [Abilify] 20 mg PO HS 04/25/14 04/18/23 History Aspirin 81 mg PO DAILY 04/25/14 04/18/23 History Clopidogrel Bisulfate [Clopidogrel] 75 mg PO QAM 04/25/14 04/18/23 History Ferrous Sulfate [Iron (65 MG 65 mg PO DAILY #0 04/25/14 04/18/23 History Elemental)] Hydrocodone/Acetaminophen 1 tab PO Q6H PRN 04/25/14 04/18/23 History [Hydrocodon-Acetaminoph 7.5-325] Levothyroxine Sodium [Synthroid] 137 mcg PO DAILY 04/25/14 04/18/23 History carvediloL [Carvedilol] 6.25 mg PO DAILY 04/25/14 04/18/23 History diphenhydrAMINE [Benadryl] 50 mg PO HS 04/25/14 04/18/23 History lisinopriL [Lisinopril] 10 mg PO DAILY 04/25/14 04/18/23 History Rosuvastatin Calcium [Crestor] 40 mg PO DAILY 01/11/15 04/18/23 History Furosemide [Lasix] 40 mg PO BID 04/19/19 04/18/23 History Isosorbide Mononitrate ER [Imdur] 30 mg PO DAILY 04/19/19 04/18/23 History busPIRone HCL 15 mg PO TID 04/19/19 04/18/23 History Fenofibrate [Lofibra] 160 mg PO DAILY 08/14/21 04/18/23 History Gabapentin [Neurontin] 300 mg PO TID 08/14/21 04/18/23 History Insulin Regular, Human [humulin R 55 unit SQ HS 08/14/21 04/18/23 History U-500 Kwikpen] Insulin Regular, Human [humulin R 80 unit SQ W/LUNCH 08/14/21 04/18/23 History U-500 Kwikpen] Insulin Regular, Human [humulin R 125 unit SQ W/SUPPER 08/14/21 04/18/23 History U-500 Kwikpen] Insulin Regular, Human [humulin R 180 unit SQ W/BRKFST 08/14/21 04/18/23 History U-500 Kwikpen] Pantoprazole [Protonix] 40 mg PO BID 08/14/21 04/18/23 History Albuterol Inhaler [Ventolin Hfa 1 - 2 puff INHALATION RT-Q6H PRN 12/15/21 04/18/23 Rx Inhaler] 30 Days #1 inh Cetirizine HCl [Zyrtec] 10 mg PO DAILY 04/18/23 04/18/23 History Insulin Regular, Human [humulin R 50 unit SQ DIRECTED 04/18/23 04/18/23 History U-500 Kwikpen] Montelukast [Singulair] 10 mg PO HS 04/18/23 04/18/23 History Nitroglycerin Sl Tabs [Nitrostat] 0.4 mg SUBLINGUAL Q5M PRN 04/18/23 04/18/23 History Tirzepatide [Mounjaro] 7.5 mg SQ Q7D 04/18/23 04/18/23 History carvediloL [Coreg] 3.125 mg PO HS 04/18/23 04/18/23 History Allergies Allergy/AdvReac Type Severity Reaction Status Date / Time No Known Allergies Allergy Verified 04/18/23 08:59 Physical Exam Vitals: Vital Signs Temp Pulse Resp BP Pulse Ox 04/18/23 10:23 76 18 148/76 98 04/18/23 06:59 75 20 157/68 95 04/18/23 01:40 71 18 145/67 94 L 04/17/23 21:48 98.2 F 90 18 128/75 97 Intake and Output 04/17/23 04/18/23 04/18/23 22:59 06:59 14:59 Intake Total 74.167 Balance 74.167 Intake: Intake, IV Titration 74.167 Amount Heparin Sod,Pork in 0.45% 74.167 NaCl 25,000 unit In 0.45 % NaCl 1 250ml.bag @ 9. 5027 UNITS/KG/HR 10 mls/ hr IV .Q24H [facility] Rx#: [id number] Other: Weight 105.233 kg Results 04/17/23 23:12 04/17/23 23:12 Cardiac Enzymes 04/17/23 04/17/23 04/18/23 Range/Units 23:12 23:12 01:36 AST 35 (14-36) U/L Troponin I 0.108 H* 0.118 H* (0.000-0.034) ng/mL 04/18/23 04/18/23 Range/Units 04:37 07:33 AST (14-36) U/L Troponin I 0.108 H* 0.104 H* (0.000-0.034) ng/mL Coagulation 04/17/23 04/18/23 Range/Units 23:12 07:33 PT 10.4 (10.0-12.5) sec APTT 22.2 25.3 (22.0-30.0) sec CBC 04/17/23 Range/Units 23:12 WBC 8.5 (3.8-10.6) k/uL RBC 4.95 (3.80-5.40) m/uL Hgb 15.4 (11.4-16.0) gm/dL Hct 46.4 H (34.0-46.0) % Plt Count 310 (150-450) k/uL Comprehensive Metabolic Panel 04/17/23 Range/Units 23:12 Sodium 138 (137-145) mmol/L Potassium 3.8 (3.5-5.1) mmol/L Chloride 98 (98-107) mmol/L Carbon Dioxide 27 (22-30) mmol/L BUN 18 H (7-17) mg/dL Creatinine 0.68 (0.52-1.04) mg/dL Glucose 102 H (74-99) mg/dL Calcium 9.7 (8.4-10.2) mg/dL AST 35 (14-36) U/L ALT 24 (4-34) U/L Alkaline Phosphatase 42 (38-126) U/L Total Protein 7.7 (6.3-8.2) g/dL Albumin 4.5 (3.5-5.0) g/dL Current Medications Generic Name Dose Route Start Last Admin Trade Name Freq PRN Reason Stop Dose Admin Alprazolam 0.25 mg 04/18/23 09:57 Alprazolam 0.25 Mg Tab PO Q6HR PRN Mild Anxiety Alprazolam 0.5 mg 04/18/23 09:57 Alprazolam 0.5 Mg Tab PO Q6HR PRN Moderate Anxiety Aspirin 81 mg 04/18/23 10:00 04/18/23 10:25 Aspirin 81 Mg PO 81 mg DAILY [facility] Administration Atorvastatin Calcium 80 mg 04/18/23 10:00 04/18/23 10:03 Atorvastatin 80 Mg Tab PO Not Given DAILY [facility] Carvedilol 12.5 mg 04/18/23 10:00 04/18/23 10:25 Carvedilol 12.5 Mg Tab PO 12.5 mg BID-W/MEALS [facility] Administration Clopidogrel Bisulfate 75 mg 04/18/23 10:00 04/18/23 10:25 Clopidogrel 75 Mg Tab PO 75 mg QAM [facility] Administration Dextrose/Water 25 ml 04/18/23 05:59 Dextrose 50% Syringe 50 Ml IVP PER PROTOCOL PRN Hypoglycemia Protocol Dextrose/Water 50 ml 04/18/23 05:59 Dextrose 50% Syringe 50 Ml IVP PER PROTOCOL PRN Hypoglycemia Protocol Furosemide 40 mg 04/18/23 10:00 04/18/23 10:25 Furosemide 40 Mg Tab PO 40 mg BID@0900,1600 [facility] Administration Heparin Sodium (Porcine) 0 unit 04/18/23 02:18 04/18/23 10:25 Heparin Sodium 1,000 Un/Ml (10ml Vl) IV 5,260 unit PER PROTOCOL PRN Administration Low PTT Protocol Heparin Sodium/Sodium Chloride 250 mls @ 10 mls/hr 04/18/23 02:30 04/18/23 10:26 25,000 unit/ Sodium Chloride IV 12.5 units/kg/hr .Q24H [facility] 13.154 mls/hr Administration Protocol 9.5027 UNITS/KG/HR Sodium Chloride 1,000 mls @ 100 mls/hr 04/18/23 06:15 04/18/23 08:06 Saline 0.9% IV 100 mls/hr .Q10H [facility] Administration Heparin Sodium (Porcine) 10, 1,001 mls @ 999 mls/hr 04/19/23 07:00 000 unit/ Sodium Chloride IRRIGATION 04/19/23 23:00 ONCE PRN INTRA-OP Heparin Sodium (Porcine) 2,500 250.5 mls @ 250 mls/hr 04/19/23 07:00 unit/ Sodium Chloride IRRIGATION 04/19/23 23:00 ONCE PRN INTRA-OP Sodium Chloride 1,000 ml/ IV 1,000 mls @ 105.233 mls/hr 04/18/23 10:00 04/18/23 10:30 Solution IV Not Given .Q9H31M [facility] 1 ML/KG/HR Insulin Aspart 0 unit 04/18/23 07:30 04/18/23 08:03 Insulin Aspart (Novolog) 100 Unit/Ml Vial SQ 3 unit ACHS [facility] Administration Protocol Isosorbide Mononitrate 30 mg 04/18/23 10:00 04/18/23 10:25 Isosorbide Mononitrate Er 30 Mg Tab.Er.24h PO 30 mg DAILY [facility] Administration Lisinopril 10 mg 04/18/23 10:00 04/18/23 10:25 Lisinopril 10 Mg Tab PO 10 mg DAILY [facility] Administration Naloxone HCl 0.2 mg 04/18/23 02:50 Naloxone 0.4 Mg/Ml 1 Ml Vial IV Q2M PRN Opioid Reversal Nitroglycerin 0.4 mg 04/18/23 09:57 Nitroglycerin Sl Tabs 0.4 Mg Tab SUBLINGUAL Q5M PRN Chest Pain Ranolazine 500 mg 04/18/23 10:00 04/18/23 10:25 Ranolazine 500 Mg Tab.Er.12h PO 500 mg Q12HR [facility] Administration Intake and Output 04/17/23 04/18/23 04/18/23 22:59 06:59 14:59 Intake Total 74.167 Balance 74.167 Intake: Intake, IV Titration 74.167 Amount Heparin Sod,Pork in 0.45% 74.167 NaCl 25,000 unit In 0.45 % NaCl 1 250ml.bag @ 9. 5027 UNITS/KG/HR 10 mls/ hr IV .Q24H [facility] Rx#: [id number] Other: Weight 105.233 kg 04/17/23 23:12 04/17/23 23:12
[2023-04-18 12:36] LABS: Glucose,Whole Blood 247 mg/dL (70-110)
[2023-04-18 13:54] LABS: Glucose,Whole Blood 211 mg/dL (70-110)
--- NOTE | 2023-04-18 15:43 | CA ---
Transthoracic Echo Report Name: Rukhsana Ordonez Age: 57 Gender: F : 1965 Exam Date: 04/18/2023 11:38 Exam Location: [facility] Ht (in): 62 Wt (lb): 232 Ordering Physician: Wilda Del Rosario MD Attending/Referring Phys: Cable Splicer Marisela Wood RDCS Procedure CPT: Indications: NSTEMI, CAD Cardiac Hx: Technical Quality: Technically difficult study Contrast 1: Definity Total Dose (mL): 2 Contrast 2: Total Dose (mL): MEASUREMENTS (Male / Female) Normal Values 2D ECHO LV Diastolic Diameter PLAX 5.0 cm 4.2 - 5.9 / 3.9 - 5.3 cm LV Systolic Diameter PLAX 4.0 cm IVS Diastolic Thickness 1.3 cm 0.6 - 1.0 / 0.6 - 0.9 cm LVPW Diastolic Thickness 1.2 cm 0.6 - 1.0 / 0.6 - 0.9 cm LV Relative Wall Thickness 0.5 RV Internal Dim ED PLAX 3.3 cm LA Volume 40.7 cm??? 18 - 58 / 22 - 52 cm??? LA Volume Index 18.5 cm???/m??? 16 - 28 cm???/m??? M-MODE Aortic Root Diameter MM 2.8 cm LA Systolic Diameter MM 6.2 cm LA Ao Ratio MM 2.2 AV Cusp Separation MM 1.6 cm DOPPLER AV Peak Velocity 185.9 cm/s AV Peak Gradient 13.8 mmHg AV Mean Velocity 121.4 cm/s AV Mean Gradient 7.1 mmHg AV Velocity Time Integral 34.2 cm LVOT Peak Velocity 117.1 cm/s LVOT Peak Gradient 5.5 mmHg LVOT Velocity Time Integral 24.4 cm MV Area PHT 5.0 cm??? Mitral E Point Velocity 92.5 cm/s Mitral A Point Velocity 97.7 cm/s Mitral E to A Ratio 0.9 MV Deceleration Time 152.6 ms MV E' Velocity 8.8 cm/s Mitral E to MV E' Ratio 10.5 FINDINGS Left Ventricle Mildly increased left ventricular wall thickness. Left ventricular cavity size normal. No obvious regional wall motion abnormalities. Left ventricular ejection fraction is estimated at 55-60 %. Right Ventricle Normal right ventricular size and function. Right ventricular systolic pressure within normal limits. Right Atrium Normal right atrial size. Left Atrium Normal left atrial size. Mitral Valve Structurally normal mitral valve. Mitral valve thickened. Mild mitral annular calcification. Mild mitral regurgitation. Aortic Valve No aortic valve stenosis or regurgitation. Tricuspid Valve Mild tricuspid regurgitation. Pulmonic Valve Trace pulmonic regurgitation. Pericardium No pericardial effusion. Aorta Normal size aortic root and proximal ascending aorta. CONCLUSIONS Normal LV function Mild mitral regurgitation Previewed by: Dr. Abhishek Zamarripa MD (Electronically Signed) Final Date: 18 April 2023 15:42
[2023-04-18] MEDS: ALPRAZolam 0.5 MG TAB PO PRN ×2 (15:47→21:06)
[2023-04-18] MEDS ORDERED: VERAPAMIL 2.5 MG/ML 2 ML AMP ONE (17:03)
[2023-04-18] MEDS ORDERED: LIDOCAINE 1% INJ 10MG/ML (20 ML MDV) ONE (17:03)
[2023-04-18] MEDS ORDERED: HEPARIN SODIUM 1,000 UN/ML (10ML VL) ONE (17:49)
[2023-04-18] MEDS ORDERED: LIDOCAINE 1% INJ 10MG/ML (20 ML MDV) SQ ONE (17:56)
[2023-04-18] MEDS ORDERED: MIDAZOLAM 2 MG/2 ML VIAL IVP ONE (17:56)
[2023-04-18] MEDS: HEPARIN SODIUM 1,000 UN/ML (10ML VL) IV ONE ×2 (18:15→18:27)
[2023-04-18] MEDS ORDERED: IV FLUID CONTINUATION 1,000 ML IV ONE (18:17)
[2023-04-18] MEDS ORDERED: niCARdipine 25 MG/10 ML VIAL ONE (18:21)
[2023-04-18] MEDS ORDERED: CLOPIDOGREL 75 MG TAB PO ONE (18:29)
[2023-04-18] MEDS ORDERED: niCARdipine Syringe (1,000 mcg/10 mL) INTRACORON ONE (18:29)
[2023-04-18] MEDS ORDERED: NITROGLYCERIN 1000MCG/10ML SYRINGE INTRACORON ONE (18:30)
[2023-04-18] MEDS ORDERED: CLOPIDOGREL 75 MG TAB ONE (18:31)
[2023-04-18] MEDS ORDERED: IOPAMIDOL-370 100ML BTL INJ ONE (18:32)
[2023-04-18] MEDS ORDERED: MAG HYDROX/AL HYDROX/SIMETH 30 ML CUP PO PRN (18:43)
[2023-04-18] MEDS ORDERED: RX INFO: IV CONTRAST WAS GIVEN 1 EACH MISC MISCELLANE PRN (18:43)
[2023-04-18] MEDS ORDERED: ATROPINE SULFATE 0.1 MG/ML 10ML SYRINGE IV PRN (18:43)
[2023-04-18] MEDS ORDERED: ZOLPIDEM 5 MG TAB PO PRN (18:43)
[2023-04-18] MEDS ORDERED: SODIUM CHLORIDE 0.9% 1,000 ML in EMPTY BAG 1 BAG IV SCH (18:45)
--- NOTE | 2023-04-18 18:51 | P.PCN ---
Date of Procedure: 04/18/23 Operative Findings: CARDIAC CATHETERIZATION AND PERCUTANEOUS CORONARY INTERVENTION PERFORMING PHYSICIAN: Jaxson Townsend MD, [facility] PROCEDURE PERFORMED: 1. Selective right and left coronary angiogram 2. Left heart catheterization 3. Successful stenting of SVG to OM using 4.0 x 18 mm Xience CHAVO with an excellent angiographic results with adjunctive use of intravascular imaging 4. SVG to LAD and SVG to OM and SVG to PDA of the LCx angiogram 5. Selective right common femoral artery angiogram and ultrasound guided access of the right common femoral artery INDICATION: Acute non-ST elevation myocardial infarction [id number] female patient with smoking and hypertension and dyslipidemia and diabetes and coronary artery disease with prior coronary artery that is grafting and stenting. COMPLICATION: None APPROACH: Right common femoral artery LEVEL OF SEDATION: Moderate with the sedation time off 43 minutes PROCEDURE DESCRIPTION: After obtaining an informed consent the patient was brought to the cardiac veterinarian laboratory animal care. The right common femoral artery was cannulated using micropuncture technique under ultrasound guidance the micropuncture wire passed easily then amylase 6-Polish 11 cm sheath at the right common femoral artery after that I did selective left and right coronary angiogram using JL4 and JR4 catheters. Left heart catheterization was performed using the JR4 catheter which cross the aortic valve then I did pulled back across the valve. After that SVG to LAD and OM and SVG to PDA of the left circumflex angiogram was performed using the JR4 catheter. After that I did intervene on the SVG to OM. Finally selective right common femoral artery angiogram was performed. The procedure was completed was no complication SELECTIVE CORONARY ANGIOGRAM: The right coronary artery: Large caliber vessel and a dominant vessel. The RCA is a stented and the stent appeared to be patent with only mild in-stent restenosis. The PDA branch of the RCA has intermediate diffuse disease only. Left main: Has mild disease only. Bifurcates into an LCx and LAD The left circumflex: Large caliber vessel appears to be codominant vessel. The LCx gives rises into an OM which is occluded and distally appeared to be subtotally occluded as well The left anterior descending artery: Large caliber vessel. The proximal LAD and mid LAD appears to have intermediate disease. Competitive flow was seen in the LAD from antegrade and retrograde flow. Coronary bypasses angiogram The SVG to the PDA of left circumflex is occluded The SVG which is a jump graft going to OM and LAD appears to have critical lesion in the graft going to the OM. The graft going to the LAD appeared to be patent HEMODYNAMICS: The LVEDP was 20 mmHg was no significant gradient across aortic valve PCI OF THE SVG to OM: Anticoagulation was initiated using heparin with continuous ACT monitoring. I did engage the graft going to the LAD and OM using LCB guide. I did wire it using a run-through wire. Intravascular ultrasound was performed and showed a diameter around 4 mm and the graft was not very calcified. Subsequently I decided to wire it was a patricia wire to anchor the graft better. After that predilatation was performed using 3 mm balloon before I deployed a 4.0 x 18 mm stent where the stent was positioned under fluoroscopy guidance and deployed under 14 javier for 20 seconds with the following angiogram showing good angiographic results and the procedure was completed was no complication CONCLUSION: Severe triple-vessel coronary artery disease Patent SVG to the LAD Critical disease involving the SVG to OM. I performed successful stenting of the SVG to OM Chronically occluded SVG to PDA of the left circumflex Patent stent in the right coronary artery POSTPROCEDURE MANAGEMENT: 1. Dual antiplatelet therapy using aspirin and Plavix for 12 month 2. Aggressive cholesterol control 3. Follow-up with the patient
[2023-04-18] MEDS ORDERED: ACETAMINOPHEN TAB 325 MG TAB PO PRN (19:46)
[2023-04-18 20:18] LABS: Glucose,Whole Blood 277 mg/dL (70-110)
[2023-04-18] MEDS ORDERED: guaiFENesin SYRUP 100MG/5ML 200 MG/10 ML CUP PO PRN (20:36)
[2023-04-18] MEDS ORDERED: carvediloL 3.125 MG TAB PO SCH (21:00)
[2023-04-18] MEDS ORDERED: HYDROcodone/APAP 7.5-325MG 1 EACH TAB PO PRN (22:21)
[2023-04-18] MEDS ORDERED: ALBUTEROL NEBULIZED 2.5 MG/3 ML INHALATION PRN (22:21)
[2023-04-18] MEDS: busPIRone HCl 5 MG TAB PO SCH (22:34)
[2023-04-18] MEDS: GABAPENTIN 300 MG CAP PO SCH (22:34)
[2023-04-18] MEDS: PANTOPRAZOLE 40 MG TABLET PO SCH (22:34)
[2023-04-18] MEDS ORDERED: diphenhydrAMINE 25 MG CAP PO SCH (22:40)
[2023-04-19 04:06] VITALS: RESP 20
[2023-04-19] MEDS: carvediloL 12.5 MG TAB PO SCH ×2 (06:07→16:26)
[2023-04-19] MEDS: SODIUM CHLORIDE 0.9% 1,000 ML IV SCH ×2 (06:07→11:33)
[2023-04-19] MEDS: PANTOPRAZOLE 40 MG TABLET PO SCH ×2 (06:07→16:26)
[2023-04-19 06:16] LABS: Glucose,Whole Blood 305 mg/dL (70-110)
[2023-04-19] MEDS ORDERED: LEVOTHYROXINE 137 MCG TAB PO SCH (06:30)
[2023-04-19] MEDS ORDERED: HEPARIN SODIUM,PORCINE 10,000 UNIT in SODIUM CHLORIDE 0.9% 1,000 ML IRRIGATION PRN (07:00)
[2023-04-19] MEDS ORDERED: HEPARIN SODIUM,PORCINE (1 ML) 2,500 UNIT in SODIUM CHLORIDE 0.9% 250 ML IRRIGATION PRN (07:00)
[2023-04-19] MEDS: INSULIN ASPART (NovoLOG) 100 UNIT/ML VIAL SQ SCH ×3 (07:01→17:26)
[2023-04-19] MEDS: busPIRone HCl 5 MG TAB PO SCH ×2 (08:02→16:26)
[2023-04-19] MEDS: lisinopriL 10 MG TAB PO SCH (08:02)
[2023-04-19] MEDS: RANOLAZINE 500 MG TAB.ER.12H PO SCH (08:03)
[2023-04-19] MEDS: ISOSORBIDE MONONITRATE ER 30 MG TAB.ER.24H PO SCH (08:03)
[2023-04-19] MEDS: ATORVASTATIN 80 MG TAB PO SCH (08:03)
[2023-04-19] MEDS: GABAPENTIN 300 MG CAP PO SCH ×2 (08:04→16:26)
[2023-04-19] MEDS: FUROSEMIDE 40 MG TAB PO SCH ×2 (08:04→16:26)
[2023-04-19] MEDS: CLOPIDOGREL 75 MG TAB PO SCH (08:04)
[2023-04-19] MEDS: ASPIRIN 81 MG PO SCH (08:04)
[2023-04-19] MEDS ORDERED: LORATADINE 10 MG TAB PO SCH (09:00)
[2023-04-19] MEDS ORDERED: FERROUS SULFATE 325 MG TAB PO SCH (09:00)
[2023-04-19] MEDS ORDERED: ASPIRIN 325 MG TAB PO SCH (09:00)
[2023-04-19] MEDS ORDERED: FENOFIBRATE 160 MG TAB PO SCH (09:00)
[2023-04-19 11:21] LABS: Glucose,Whole Blood 302 mg/dL (70-110)
--- NOTE | 2023-04-19 12:09 | P.PN ---
Subjective Progress Note Date: 04/19/23 * 57-year-old patient with past medical history significant for coronary artery disease, history of diabetes mellitus, hypertension, hyperlipidemia, presents to the emergency department with complains of chest pain. Patient has been having intermittent chest discomfort radiating to the neck for the last 72 hours. Patient states she took nitroglycerin with's improvement in her symptoms. Patient does have history of PCI was previously seen by cardiology in 2021. She did complain of associated nausea and dry heaves * Workup initiated in ER included an EKG which showed sinus rhythm, no significant ST segment changes were noted * Chest x-ray obtained in ER negative for acute finding * Workup initiated in ER included basic metabolic panel which showed sodium 138 potassium 3.8, Ember 20 7B on 18 creatinine 0.68, CBC obtained showed WBC 8.5 hemoglobin 15 platelet count of 310 INR of 0.9 * Workup initiated in ER included workup for ACS, patient started on IV heparin, given aspirin consultation obtained from cardiology. * 04/19/2023: Patient seen and evaluated bedside, patient treated for non-ST elevated MN, underwent PCI on 04/18 showed to have triple-vessel disease/PCI SVG to OM, chronically occluded SVG to PDA of the left circumflex. Continue patient on aspirin and Plavix postprocedure. Patient had had right groin access, no hematoma noted, once cleared by cardiology potential discharge home PHYSICAL EXAMINATION: GENERAL: The patient is alert and oriented x3, not in any acute distress. HEENT: Pupils are round and equally reacting to light. EOMI. CARDIOVASCULAR: S1 and S2 present. No murmurs, rubs, or gallops. A mile right groin access no hematoma noted PULMONARY: Chest is clear to auscultation, no wheezing or crackles. ABDOMEN: Soft, nontender, nondistended, normoactive bowel sounds. No palpable organomegaly. MUSCULOSKELETAL: No joint swelling or deformity. EXTREMITIES: No cyanosis, clubbing, or pedal edema. NEUROLOGICAL: Gross neurological examination did not reveal any focal deficits. SKIN: No rashes. Objective - Vital Signs Vital signs: Vital Signs Temp 97.8 F 04/19/23 11:34 Pulse 69 04/19/23 11:34 Resp 20 04/19/23 11:34 BP 102/63 04/19/23 11:34 Pulse Ox 96 04/19/23 11:34 FiO2 Intake & Output 04/18/23 04/19/23 04/19/23 18:59 06:59 18:59 Intake Total 361.422 10 120 Output Total 2300 Balance 361.422 -2290 120 Intake: IV 200 10 Invasive Line 1 10 Intake, IV Titration 161.422 Amount Heparin Sod,Pork in 0.45% 161.422 NaCl 25,000 unit In 0.45 % NaCl 1 250ml.bag @ 9. 5027 UNITS/KG/HR 10 mls/ hr IV .Q24H [facility] Rx#: [id number] Oral 120 Output: Urine 2300 Other: Voiding Method Indwelling Catheter Toilet # Voids 1 - Labs CBC & Chem 7: 04/17/23 23:12 04/17/23 23:12 Labs: Abnormal Lab Results - Last 24 Hours (Table) 04/18/23 04/18/23 04/18/23 Range/Units 12:34 13:51 20:11 POC Glucose (mg/dL) 247 H 211 H 277 H (70-110) mg/dL 04/19/23 04/19/23 Range/Units 06:14 11:19 POC Glucose (mg/dL) 305 H 302 H (70-110) mg/dL Assessment and Plan Assessment: Assessment and plan * Coronary artery disease with non-ST elevated MN * Severe triple vessel disease, patent SVG to LAD, critical disease SVG to OM, status post PCI, chronically occluded SVG to PDA of the left circumflex, patent stent in right coronary artery * History of CABG 2012 * Hypertension and hyperlipidemia * Peripheral vascular disease * Diabetes mellitus type 2 * Hypothyroid * In regards to non-ST elevated MN, coronary artery disease/history of CABG continue aspirin and Plavix status post PCI, echocardiogram shows preserved ejection fraction, plan to discharge home once cleared by cardiology * In regards to history of hypertension, will resume home medications including Coreg, Imdur * In regards to history of diabetes mellitus, continue correctional insulin, monitor for hypoglycemia, will resume home regimen for Lantus * In regards to hypothyroid continue Synthyroid Time with Patient: Greater than 30
[2023-04-19 12:21] LABS: Basophils % (A) 1 %; Eosinophils # (A) 0.1 k/uL (0-0.7); Eosinophils % (A) 1 %; HCT 45.2 % (34.0-46.0); HGB 14.8 gm/dL (11.4-16.0); Lymphocytes # (A) 1.2 k/uL (1.0-4.8); Lymphocytes % (A) 14 %; MCH 31.4 pg (25.0-35.0); MCHC 32.8 g/dL (31.0-37.0); MCV 95.9 fL (80.0-100.0); Mean Platelet Volume 7.2; Monocytes # (A) 0.4 k/uL (0-1.0); Monocytes % (A) 5 %; Neutrophils # (A) 6.4 k/uL (1.3-7.7); Neutrophils % (A) 78 %; Platelet Count 317 k/uL (150-450); RBC 4.71 m/uL (3.80-5.40); RDW 14.5 % (11.5-15.5); WBC 8.2 k/uL (3.8-10.6)
[2023-04-19 12:26] LABS: African American GFR (CKD) >90 (>60 ml/min/1.73 sqM); Anion Gap 9 mmol/L; Blood Urea Nitrogen 14 mg/dL (7-17); Calcium 8.9 mg/dL (8.4-10.2); Carbon Dioxide 26 mmol/L (22-30); Chloride 101 mmol/L (98-107); Glucose 314 mg/dL (74-99); Non-African American GFR(CKD) >90 (>60 ml/min/1.73 sqM); Potassium 4.5 mmol/L (3.5-5.1); Sodium 136 mmol/L (137-145)
[2023-04-19 12:30] LABS: Prothrombin Time 10.6 sec (10.0-12.5)
[2023-04-19 13:46] VITALS: BMI 42.4
[2023-04-19 16:36] VITALS: BP 129/71; PULSE 72; TEMP 97.6
[2023-04-19 16:46] LABS: Glucose,Whole Blood 353 mg/dL (70-110)
--- NOTE | 2023-04-19 16:56 | P.DS ---
Providers Date of admission: 04/18/23 02:50 Expected date of discharge: 04/19/23 Attending physician: Nichol Myrick Consults: 04/18/23 02:50 Consult Physician Routine Consulting Provider: Maya Gan Consult Reason/Comments: nstemi Do you want consulting provider notified?: Yes 04/18/23 18:43 Consult Physician Routine Consulting Provider: Maya Gan Consult Reason/Comments: Post Interventional Patient Do you want consulting provider notified?: Already Contacted Primary care physician: [facility] Course: * 57-year-old patient with past medical history significant for coronary artery disease, history of diabetes mellitus, hypertension, hyperlipidemia, presents to the emergency department with complains of chest pain. Patient has been h aving intermittent chest discomfort radiating to the neck for the last 72 hours. Patient states she took nitroglycerin with's improvement in her symptoms. Patient does have history of PCI was previously seen by cardiology in 2021. She did complain of associated nausea and dry heaves * Workup initiated in ER included an EKG which showed sinus rhythm, no significant ST segment changes were noted * Chest x-ray obtained in ER negative for acute finding * Workup initiated in ER included basic metabolic panel which showed sodium 138 potassium 3.8, Ember 20 7B on 18 creatinine 0.68, CBC obtained showed WBC 8.5 hemoglobin 15 platelet count of 310 INR of 0.9 * Workup initiated in ER included workup for ACS, patient started on IV heparin, given aspirin consultation obtained from cardiology. * 04/19/2023: Patient seen and evaluated bedside, patient treated for non-ST elevated DE, underwent PCI on 04/18 showed to have triple-vessel disease/PCI SVG to OM, chronically occluded SVG to PDA of the left circumflex. Continue patient on aspirin and Plavix postprocedure. Patient had had right groin access, no hematoma noted, once cleared by cardiology potential discharge home PHYSICAL EXAMINATION: GENERAL: The patient is alert and oriented x3, not in any acute distress. HEENT: Pupils are round and equally reacting to light. EOMI. CARDIOVASCULAR: S1 and S2 present. No murmurs, rubs, or gallops. A mile right groin access no hematoma noted PULMONARY: Chest is clear to auscultation, no wheezing or crackles. ABDOMEN: Soft, nontender, nondistended, normoactive bowel sounds. No palpable organomegaly. MUSCULOSKELETAL: No joint swelling or deformity. EXTREMITIES: No cyanosis, clubbing, or pedal edema. NEUROLOGICAL: Gross neurological examination did not reveal any focal deficits. SKIN: No rashes. Assessment: Assessment and plan * Coronary artery disease with non-ST elevated DE * Severe triple vessel disease, patent SVG to LAD, critical disease SVG to OM, status post PCI, chronically occluded SVG to PDA of the left circumflex, patent stent in right coronary artery * History of CABG 2012 * Hypertension and hyperlipidemia * Peripheral vascular disease * Diabetes mellitus type 2 * Hypothyroid * In regards to non-ST elevated DE, coronary artery disease/history of CABG continue aspirin and Plavix status post PCI, echocardiogram shows preserved ejection fraction, plan to discharge home once cleared by cardiology * In regards to history of hypertension, will resume home medications including Coreg, Imdur * In regards to history of diabetes mellitus, continue correctional insulin, monitor for hypoglycemia, will resume home regimen for Lantus * In regards to hypothyroid continue Synthyroid Patient Condition at Discharge: Stable Plan - Discharge Summary Discharge Rx Participant: No New Discharge Prescriptions: New carvediloL [Coreg*] 12.5 mg PO BID-W/MEALS #60 tab Clopidogrel [Plavix] 75 mg PO QAM #30 tab Ranolazine [Ranexa] 500 mg PO Q12HR #60 tab Nitroglycerin Sl Tabs [Nitrostat] 0.4 mg SUBLINGUAL Q5M PRN #30 tab PRN Reason: Chest Pain Continue ARIPiprazole [Abilify] 20 mg PO HS Hydrocodone/Acetaminophen [Hydrocodon-Acetaminoph 7.5-325] 1 tab PO Q6H PRN PRN Reason: Pain lisinopriL [Lisinopril] 10 mg PO DAILY diphenhydrAMINE [Benadryl] 50 mg PO HS Levothyroxine Sodium [Synthroid] 137 mcg PO DAILY Ferrous Sulfate [Iron (65 MG Elemental)] 65 mg PO DAILY #0 Rosuvastatin Calcium [Crestor] 40 mg PO DAILY busPIRone HCL 15 mg PO TID Isosorbide Mononitrate ER [Imdur] 30 mg PO DAILY Furosemide [Lasix] 40 mg PO BID Fenofibrate [Lofibra] 160 mg PO DAILY Albuterol Inhaler [Ventolin Hfa Inhaler] 1 - 2 puff INHALATION RT-Q6H PRN 30 Days #1 inh PRN Reason: Shortness Of Breath Pantoprazole [Protonix] 40 mg PO BID Gabapentin [Neurontin] 300 mg PO TID Insulin Regular, Human [humulin R U-500 Kwikpen] 180 unit SQ W/BRKFST Insulin Regular, Human [humulin R U-500 Kwikpen] 80 unit SQ W/LUNCH Insulin Regular, Human [humulin R U-500 Kwikpen] 125 unit SQ W/SUPPER Insulin Regular, Human [humulin R U-500 Kwikpen] 55 unit SQ HS Montelukast [Singulair] 10 mg PO HS Tirzepatide [Mounjaro] 7.5 mg SQ Q7D Insulin Regular, Human [humulin R U-500 Kwikpen] 50 unit SQ DIRECTED Aspirin 81 mg PO DAILY #90 tab Discontinued carvediloL [Carvedilol] 6.25 mg PO DAILY Clopidogrel Bisulfate [Clopidogrel] 75 mg PO QAM carvediloL [Coreg] 3.125 mg PO HS Nitroglycerin Sl Tabs [Nitrostat] 0.4 mg SUBLINGUAL Q5M PRN PRN Reason: Chest Pain Cetirizine HCl [Zyrtec] 10 mg PO DAILY Discharge Medication List ARIPiprazole [Abilify] 20 mg PO HS 04/25/14 [History] Ferrous Sulfate [Iron (65 MG Elemental)] 65 mg PO DAILY #0 04/25/14 [History] Hydrocodone/Acetaminophen [Hydrocodon-Acetaminoph 7.5-325] 1 tab PO Q6H PRN 04/25/14 [History] Levothyroxine Sodium [Synthroid] 137 mcg PO DAILY 04/25/14 [History] diphenhydrAMINE [Benadryl] 50 mg PO HS 04/25/14 [History] lisinopriL [Lisinopril] 10 mg PO DAILY 04/25/14 [History] Rosuvastatin Calcium [Crestor] 40 mg PO DAILY 01/11/15 [History] Furosemide [Lasix] 40 mg PO BID 04/19/19 [History] Isosorbide Mononitrate ER [Imdur] 30 mg PO DAILY 04/19/19 [History] busPIRone HCL 15 mg PO TID 04/19/19 [History] Fenofibrate [Lofibra] 160 mg PO DAILY 08/14/21 [History] Gabapentin [Neurontin] 300 mg PO TID 08/14/21 [History] Insulin Regular, Human [humulin R U-500 Kwikpen] 55 unit SQ HS 08/14/21 [History] Insulin Regular, Human [humulin R U-500 Kwikpen] 80 unit SQ W/LUNCH 08/14/21 [History] Insulin Regular, Human [humulin R U-500 Kwikpen] 125 unit SQ W/SUPPER 08/14/21 [History] Insulin Regular, Human [humulin R U-500 Kwikpen] 180 unit SQ W/BRKFST 08/14/21 [History] Pantoprazole [Protonix] 40 mg PO BID 08/14/21 [History] Albuterol Inhaler [Ventolin Hfa Inhaler] 1 - 2 puff INHALATION RT-Q6H PRN 30 Days #1 inh 12/15/21 [Rx] Insulin Regular, Human [humulin R U-500 Kwikpen] 50 unit SQ DIRECTED 04/18/23 [History] Montelukast [Singulair] 10 mg PO HS 04/18/23 [History] Tirzepatide [Mounjaro] 7.5 mg SQ Q7D 04/18/23 [History] Aspirin 81 mg PO DAILY #90 tab 04/19/23 [Rx] Clopidogrel [Plavix] 75 mg PO QAM #30 tab 04/19/23 [Rx] Nitroglycerin Sl Tabs [Nitrostat] 0.4 mg SUBLINGUAL Q5M PRN #30 tab 04/19/23 [Rx] Ranolazine [Ranexa] 500 mg PO Q12HR #60 tab 04/19/23 [Rx] carvediloL [Coreg*] 12.5 mg PO BID-W/MEALS #60 tab 04/19/23 [Rx] Follow up Appointment(s)/Referral(s): Jose Brown MD [Primary Care Provider] - 1-2 days Jaxson Townsend MD [STAFF PHYSICIAN] - 1 Week Discharge Disposition: HOME SELF-CARE
--- NOTE | 2023-04-19 18:35 | P.PN ---
Subjective Progress Note Date: 04/19/23 Cardiac cath showed triple-vessel bois forte CAD, patent SVG to LAD, stenosis of SVG to OM status post PCI, chronically occluded SVG to PDA of LCx. Patent stent in right coronary. Today's creatinine 0.6, BUN 14, glucose 314, hemoglobin 14 129/71, heart rate 72 PHYSICAL EXAM: GENERAL: Well-developed in no acute distress. LUNGS: Clear to auscultate HEART: Regular rate and rhythm. S1 and S2 heard. ABDOMEN: Soft. Nondistended. Nontender. Right groin appears intact with no signs of swelling or hematoma. During cath patient had manual pressure hold. No gross her device was used ASSESSMENT: Non-STEMI Coronary artery disease with previous three-vessel CABG in 2012 with subsequent stenting, most recently in August 2021 Hypertension Hyperlipidemia Diabetes Carotid atherosclerosis Peripheral vascular disease Ongoing nicotine dependence Marijuana use PLAN: Continue carvedilol to 12.5 mg twice a day Continue Ranexa 500 mg twice a day Aspirin and Plavix and atorvastatin and fenofibrate Advise better blood pressure, diabetes, glucose control Strongly advised to stop smoking and marijuana use Follow up outpatient with Dr. Townsend. Patient is at high risk for readmission as she has significant history of noncompliance Objective - Vital Signs Vital signs: Vital Signs Temp 97.6 F 04/19/23 16:25 Pulse 72 04/19/23 16:25 Resp 20 04/19/23 16:25 BP 129/71 04/19/23 16:25 Pulse Ox 94 L 04/19/23 16:25 FiO2 Intake & Output 04/18/23 04/19/23 04/19/23 18:59 06:59 18:59 Intake Total 361.422 10 240 Output Total 2300 0 Balance 361.422 -2290 240 Weight 105.233 kg Intake: IV 200 10 Invasive Line 1 10 Intake, IV Titration 161.422 Amount Heparin Sod,Pork in 0.45% 161.422 NaCl 25,000 unit In 0.45 % NaCl 1 250ml.bag @ 9. 5027 UNITS/KG/HR 10 mls/ hr IV .Q24H [facility] Rx#: [id number] Oral 240 Output: Gastric Drainage 0 Urine 2300 0 Stool 0 Urine/Stool Mix 0 Emesis 0 Oral Regurgitation 0 Other 0 Other: Voiding Method Indwelling Catheter Toilet # Voids 0 # Bowel Movements 0 - Labs CBC & Chem 7: 04/19/23 11:33 04/19/23 11:33 Labs: Abnormal Lab Results - Last 24 Hours (Table) 04/18/23 04/19/23 04/19/23 Range/Units 20:11 06:14 11:19 Sodium (137-145) mmol/L Glucose (74-99) mg/dL POC Glucose (mg/dL) 277 H 305 H 302 H (70-110) mg/dL 04/19/23 04/19/23 Range/Units 11:33 16:44 Sodium 136 L (137-145) mmol/L Glucose 314 H (74-99) mg/dL POC Glucose (mg/dL) 353 H (70-110) mg/dL
[2023-04-19] MEDS ORDERED: diphenhydrAMINE 50 MG CAP PO SCH (21:00)
[2023-04-19] MEDS ORDERED: MONTELUKAST 10 MG TAB PO SCH (21:00)
== END 2023-04-19 17:53 | disposition home or self-care (01) | DRG 322 ==
LOC: EC 20:49 → 3SCARD 04-18 02:50
PROVIDERS: ADMIT Hospitalist; ATTEND Hospitalist
PROC: B2111ZZ Fluoroscopy of Multiple Coronary Arteries using Low Osmolar Contrast (ICD-10-PCS; principal; 2023-04-18 13:15)
PROC: B240ZZ3 Ultrasonography of Single Coronary Artery, Intravascular (ICD-10-PCS; principal; 2023-04-18 13:15)
PROC: B41F1ZZ Fluoroscopy of Right Lower Extremity Arteries using Low Osmolar Contrast (ICD-10-PCS; principal; 2023-04-18 13:15)
PROC: B2131ZZ Fluoroscopy of Multiple Coronary Artery Bypass Grafts using Low Osmolar Contrast (ICD-10-PCS; principal; 2023-04-18 13:15)
PROC: 027034Z Dilation of Coronary Artery, One Artery with Drug-eluting Intraluminal Device, Percutaneous Approach (ICD-10-PCS; principal; 2023-04-18 13:15)
PROC: 4A023N7 Measurement of Cardiac Sampling and Pressure, Left Heart, Percutaneous Approach (ICD-10-PCS; principal; 2023-04-18 13:15)
DX: I21.4 Non-ST elevation (NSTEMI) myocardial infarction (principal); I50.30 Unspecified diastolic (congestive) heart failure; I25.810 Atherosclerosis of coronary artery bypass graft(s) without angina pectoris; I25.10 Atherosclerotic heart disease of native coronary artery without angina pectoris; I08.1 Rheumatic disorders of both mitral and tricuspid valves; I65.29 Occlusion and stenosis of unspecified carotid artery; N32.81 Overactive bladder; E03.9 Hypothyroidism, unspecified; E11.51 Type 2 diabetes mellitus with diabetic peripheral angiopathy without gangrene; E78.5 Hyperlipidemia, unspecified; F31.9 Bipolar disorder, unspecified; F43.10 Post-traumatic stress disorder, unspecified; I11.0 Hypertensive heart disease with heart failure; Z71.6 Tobacco abuse counseling; F17.200 Nicotine dependence, unspecified, uncomplicated; L30.9 Dermatitis, unspecified; K21.9 Gastro-esophageal reflux disease without esophagitis; Z71.3 Dietary counseling and surveillance; Z79.82 Long term (current) use of aspirin; Z79.4 Long term (current) use of insulin; Z79.890 Hormone replacement therapy; Z79.899 Other long term (current) drug therapy; Z87.01 Personal history of pneumonia (recurrent); Z79.02 Long term (current) use of antithrombotics/antiplatelets; Z79.84 Long term (current) use of oral hypoglycemic drugs; Z28.21 Immunization not carried out because of patient refusal
CPT/HCPCS: 36415; 71046; 76937; 80048; 80053; 83036; 83735; 84484; 85025; 85610; 85730; 92978; 93005; 93306; 93459; 94760; 96365; 96366; 99285

== ENCOUNTER → 2024-02-16 | Outpatient (CLI) | payer MEDICARE, OTHER ==
--- NOTE | 2024-02-16 12:33 | CT ---
EXAMINATION TYPE: CT chest wo con CT DLP: 616.90 mGycm, Automated exposure control for dose reduction was used. DATE OF EXAM: 02/16/2024 12:02 PM COMPARISON: CT chest 12/15/2021, CT chest 01/11/2015 CLINICAL INDICATION:Female, 58 years old with history of R91.1 LUNG NODULE, E11.9, R06.00, ZZ72.0, J4 5.40; [facility], TECHNIQUE: Multiple axial images were obtained through the chest without IV contrast. Lack of IV or o ral contrast limits evaluation of solid and hollow organ viscera. . Coronal and sagittal reformats re viewed. FINDINGS: LUNGS/ PLEURA: No pleural effusion or pneumothorax. No focal consolidation. Linear scarring within th e anterior left upper lobe. Tree-in-bud nodular opacities within the posterior medial aspect of the right upper lobe with largest measuring 7 mm (series 4, image 13). Nodules appear slightly increased from prior examination when it measured up to 4 mm. Additional few scattered pulmonary peripheral mckinley ronodules are stable measuring less than 3 mm. AIRWAY: Patent and unremarkable.. HEART: Mildly enlarged. No pericardial effusion. Post-CABG changes. Coronary stents and coronary alexsander rial calcifications. MEDIASTINUM: No gross evidence of adenopathy. VASCULATURE: No aortic aneurysm. Mild atherosclerotic calcification of the aorta and its branches. MUSCULOSKELETAL: No acute osseous abnormalities. Median sternotomy wires. SOFT TISSUES/LYMPH NODES: Unremarkable. LOWER NECK: No significant findings. UPPER ABDOMEN: Diffuse low-attenuation to the liver parenchyma. IMPRESSION: 1. Focal posterior right upper lobe tree-in-bud nodular opacities redemonstrated but appears slightl y larger from prior exam. Additional scattered stable peripheral pulmonary micronodules. May represen t infectious/inflammatory bronchiolitis due to clustered appearance. Follow-up CT chest in 3-6 months is recommended. 2. Hepatic steatosis. 3. Post-CABG changes. [facility], , 02/16/2024 12:30 PM
== END | disposition home or self-care (01) ==
LOC: RADCTMAIN 11:44
PROVIDERS: ATTEND Internal Medicine Pulmonary Disease
DX: K76.0 Fatty (change of) liver, not elsewhere classified (principal); E11.9 Type 2 diabetes mellitus without complications; J45.40 Moderate persistent asthma, uncomplicated; R91.8 Other nonspecific abnormal finding of lung field; Z72.0 Tobacco use; Z95.1 Presence of aortocoronary bypass graft
CPT/HCPCS: 71250

== ENCOUNTER → 2024-08-04 | Outpatient (CLI) | payer MEDICARE, OTHER ==
[2024-08-04 15:58] LABS: Basophils # (A) 0.08 X 10*3/uL (0.00-0.10); Basophils % (A) 1.2 %; Eosinophils # (A) 0.19 X 10*3/uL (0.04-0.35); Eosinophils % (A) 2.7 %; HCT 44.2 % (37.2-46.3); HGB 14.6 g/dL (12.0-15.0); Lymphocytes # (A) 1.86 X 10*3/uL (0.90-5.00); Lymphocytes % (A) 26.8 %; MCH 30.5 pg (27.0-32.0); MCV 92.5 FL (80.0-97.0); Mean Platelet Volume 8.8 FL (9.5-12.2); Monocytes # (A) 0.59 X 10*3/uL (0.20-1.00); Monocytes % (A) 8.5 %; NRBC Per 100 WBC 0 X 10*3/uL (0.00-0.01); Neutrophils # (A) 4.18 X 10*3/uL (1.80-7.70); Neutrophils % (A) 60.4 %; Platelet Count 381 X 10*3/uL (140-440); RBC 4.78 X 10*6/uL (4.10-5.20); RDW 14.9 % (11.5-14.5); WBC 6.93 X 10*3/uL (4.50-10.00)
[2024-08-04 21:21] LABS: Alternaria alternata IgE <0.10 kU/L; Aspergillus fumagatus IgE <0.10 kU/L; Birch IgE <0.10 kU/L; Cat Epith & Dander IgE <0.10 kU/L; Cladosporian herbarum IgE <0.10 kU/L; Dermato. farinae IgE 1.04 kU/L; Dog Dander IgE <0.10 kU/L; Maple (Box Elder) IgE <0.10 kU/L; Oak IgE <0.10 kU/L; Red Top (Bentgrass) IgE 2.16 kU/L
== END | disposition home or self-care (01) ==
LOC: LABWHC1 11:31
PROVIDERS: ATTEND Internal Medicine Pulmonary Disease
DX: J45.909 Unspecified asthma, uncomplicated (principal); F17.210 Nicotine dependence, cigarettes, uncomplicated; R06.00 Dyspnea, unspecified; R91.1 Solitary pulmonary nodule
CPT/HCPCS: 36415; 82103; 82104; 82785; 85025; 86001; 86003; 86606; 86609

== ENCOUNTER → 2024-08-25 | Outpatient (CLI) | payer MEDICARE, OTHER ==
--- NOTE | 2024-08-25 12:04 | CT ---
EXAMINATION TYPE: CT chest wo con DATE OF EXAM: 08/25/2024 COMPARISON: Prior chest CT February 16, 2024 CLINICAL INDICATION: Female, 59 years old with history of R06.00 dyspnea, Dyspnea, hx asthma, current smoker TECHNIQUE: CT scan of the thorax is performed without IV contrast. CT DLP: 636.30 mGycm. Automated Exposure Control for Dose Reduction was Utilized. FINDINGS: LUNGS: There are new small adjacent focal areas of nodularity and/or more likely nodular consolidatio n in the posterior medial aspect of the right upper lobe axial image 14 measuring up to 9 mm. New sma ller nodules anterior right upper lobe measuring up under 5 mm are present. Stable xejx-dg-tlhadten l inear scarring in the anterior left mid lung. New peripheral 3 to 4 mm left lower lobe nodule image 3 7. No pleural effusion or pneumothorax seen bilaterally. HEART: Size within normal limits. Severe chitina coronary artery calcifications. Post CABG changes wit h overlying sternal wires and mediastinal clips is present however. MEDIASTINUM: Lack of IV contrast is noted to limit evaluation for mediastinal and especially hilar ad enopathy. There are no definitive greater than 1 cm mediastinal lymph nodes. No pericardial effusio n is seen. OTHER: Slight scoliotic curvature is seen. IMPRESSION: New small areas of nodularity. Suspect acute infectious process posterior medial right up per lobe. Correlate clinically. Advise follow-up CT in 3-6 months time to reassess to exclude true or enlarging nodules. [facility], , 08/25/2024 12:02 PM
== END | disposition home or self-care (01) ==
LOC: RADCTMAIN 10:31
PROVIDERS: ATTEND Internal Medicine Pulmonary Disease
DX: J45.50 Severe persistent asthma, uncomplicated (principal); R91.1 Solitary pulmonary nodule; E11.9 Type 2 diabetes mellitus without complications; F17.200 Nicotine dependence, unspecified, uncomplicated
CPT/HCPCS: 71250